=== PATIENT | male | born 1960 | race Caucasian/White ===

== ENCOUNTER 2022-05-07 18:46 | Inpatient (IN) ==
[2022-05-07 19:55] LABS: Hemoglobin 16.5 g/dl (14.0-18.0); Mean Corpuscular Hemoglobin 31.3 pg (25.0-34.0); Mean Corpuscular Hgb Conc 35.1 g/dL (32.0-36.0); Platelet Count 266 K/uL (130-400); RDW Coefficient of Variation 12.3 % (11.5-14.5); RDW Standard Deviation 40.4 fL (36.4-46.3); Red Blood Count 5.28 M/uL (4.63-6.08); White Blood Count 16.57 K/ul (4.8-10.8)
[2022-05-07] MEDS ORDERED: LABETALOL HCL IV 5 MG/ML 20ML IV STA (20:07)
--- NOTE | 2022-05-07 20:10 | Emergency Department Note ---
Impression & Plan Elevated troponin ADMIT ED Provider Note HPI: The patient is a very pleasant 62-year-old gentleman who presents emergency department with a chief complaint of hypertension. Patient states that he was playing the trLittle Pimet earlier this week and he states he was "really going out of it". He states he was playing for about 2-1/2 hours, patient states shortly thereafter he developed a sensation of tinnitus bilaterally, denies any headache, denies any nausea or vomiting. Patient states that he was seen today an urgent care in [place], [place], as he was concerned he might be developing an ear infection. During that visit patient was noted to have hypertension and was a dvised to come to the emergency department to be evaluated for a hypertensive emergency. On arrival here to the ED his blood pressure is elevated at 171/98, he denies any headache, denies any chest pain, denies any abdominal pain, states he does have a sensation of tinnitus bilaterally but denies any headache. Patient is otherwise hemodynamically stable and saturating well on room air on arrival, he is conversational, no focal deficits, no respiratory distress ROS: -General: Concern for hypertension -HEENT: Tinnitus, bilateral *10 point review systems was conducted and is otherwise negative unless stated above *Outpatient medications and allergy history reviewed PE: General: Alert HEENT: Normocephalic, trachea midline, tympanic membranes are clear bilaterally Eyes: Extraocular eye movement is intact, no scleral erythema Pulmonary: Clear to auscultation bilaterally, no wheezing Cardio: Regular rate and rhythm GI: Abdomen is soft, nontender : No suprapubic tenderness MSK: No evidence of trauma or malformation of the extremities, no edema Skin: No evidence of rash Neuro: Alert, no focal deficits Psychiatric: Cooperative pvc monitor: - An order was placed for continuous cardiac monitoring - Patient was noted to be in sinus rhythm with a rate of 100 EKG: Rate: 107 Rhythm: Sinus rhythm Intervals: Within normal limits ST changes: No ST elevation Time: 192 EKG #2 Rate: 81 Rhythm: Normal sinus rhythm Intervals: Within normal limits ST changes: No ST elevation Time: 2042 Interventions provided in ED: -IV labetalol, IV hydralazine, aspirin CTA CHEST: No evidence of pulmonary emboli. Findings concerning for bronchitis, which may be infectious or inflammatory etiologies. No consolidation. Ectasia of the ascending region measuring 37 mm in diameter. Moderate calcified atherosclerotic disease of the coronary arteries. Small hiatal hernia. No comparisons. Radiologist: Tianna Rucker MD Medical Decision Making: The patient is a 62-year-old male with history of coronary artery disease, presents to the emergency department with a chief complaint of high blood pressure at the local urgent care, also with some recent tinnitis after playing the trumpet. He denies any headaches. On arrival here to the ED the patient is noted to be hypertensive at 171/98, patient was given IV labetalol, placed on property assessment monitor, blood work was obtained. EKG was also obtained, noted to show normal sinus rhythm without any evidence of ST elevation. Patient's troponin did result elevated at 105, his blood pressure remained elevated as well, I discussed with the patient obtaining CT angiography of the chest to rule out PE or dissection, patient was in agreement, CT angiography was obtained that shows no evidence of pulmonary emboli, no evidence of any obvious dissection, there is evidence of some ectasia of the ascending region of the aorta measuring 37 mm in diameter. There is also note of moderate calcified atherosclerotic disease of the coronary arteries. Patient later tells me that he did have a stent placed years ago at [facility], he states he is concentrating on diet and exercise after doing his own research as opposed to medical therapy for his coronary artery disease. Patient states he has not had any chest pain recently, if he goes through "extreme exertion" he states he will get some chest discomfort but at rest he has no symptoms. He has not had any active chest pain while here in the ED. Lab work does show evidence of leukocytosis, patient denies any recent infectious signs or symptoms. This could possibly be reactive in nature. CT imaging of the chest mentions possible bronchitis, no evidence of a focal consolidation to suggest pneumonia. On my reassessment the patient appears comfortable, he was given hydralazine and labetalol and his blood pressure did downtrend to the 160 systolic. I discussed with him my concerns in regards to his elevated troponin, hypertensive emergency, and history of coronary artery disease. Patient adamantly declines any type of diagnostic catheterization, states that he is in agreement for admission for blood pressure control and to trend his troponin levels but would only want a catheterization if he was having an acute heart attack. Patient states this is because he is on a strict diet and exercise regimen after doing his own research to reverse his coronary artery disease with diet and exercise alone. Regardless, at this time the patient is in agreement for admission for further care in regards to his hypertensive emergency with end-organ damage/elevated troponin. Blood pressure is improved, patient was given aspirin, case was discussed with the on-call hospitalist for [facility], Dr. Valenzuela, patient was admitted in stable condition for further care. * CRITICAL CARE TIME: (45) minutes -Time spent at the bedside in management of hypertensive emergency with elevated troponin, requiring IV antihypertensive medications for blood pressure improvement, discussion with other physicians, time spent at the bedside in discussion with the patient in regards to admission, and arrangement of admission Diagnosis: 1. Hypertensive emergency 2. Elevated troponin 3. Nonspecific leukocytosis Disposition: Admission Shine Zambrano, Emergency Medicine Past Med/Surg History Social History Smoking Status: Never smoker Preferred Language: Peruvian Feels Safe at Home: Yes Allergies Allergies Allergy/AdvReac Type Severity Reaction Status Date / Time No Known Allergies Allergy Unverified 05/07/22 21:10 Home Meds Home Medications Medication Instructions Recorded Confirmed aspirin 81 mg tablet,delayed 81 mg PO DAILY 05/07/22 05/07/22 release Results & Data (ED) Vital Signs Vital Signs - 24 hr 05/07/22 19:05 05/07/22 20:47 05/07/22 19:08 Temperature 37.0 C Temperature Source Temporal Artery Scan Pulse Rate 100 H 81 Pulse Rate [Apical] 81 Pulse Rate from SpO2 Sensor Respiratory Rate 18 19 24 Respiratory Effort / Characteristics Non-Labored Spontaneous Respiratory Depth Normal Normal Blood Pressure 171/98 H Blood Pressure [Right Arm] 185/99 H Blood Pressure Mean 122 Blood Pressure Mean [Right Arm] 127 Pulse Oximetry 98 99 99 Oxygen Delivery Method Room Air Room Air Room Air Sepsis Recent Fever Within 48 Hours No Sepsis New/Unexplained Change in Mental Status N/A Sepsis Action Taken by Nursing No Action Required 05/07/22 20:10 05/07/22 20:29 05/07/22 20:30 Temperature Temperature Source Pulse Rate 83 95 H 105 H Pulse Rate [Apical] Pulse Rate from SpO2 Sensor Respiratory Rate 22 24 23 Respiratory Effort / Characteristics Respiratory Depth Blood Pressure 190/101 H Blood Pressure [Right Arm] Blood Pressure Mean 130 Blood Pressure Mean [Right Arm] Pulse Oximetry Oxygen Delivery Method Sepsis Recent Fever Within 48 Hours Sepsis New/Unexplained Change in Mental Status Sepsis Action Taken by Nursing 05/07/22 21:00 05/07/22 21:15 05/07/22 21:30 Temperature Temperature Source Pulse Rate 77 88 83 Pulse Rate [Apical] Pulse Rate from SpO2 Sensor 85 Respiratory Rate 22 13 21 Respiratory Effort / Characteristics Respiratory Depth Blood Pressure 184/112 H 185/99 H 173/115 H Blood Pressure [Right Arm] Blood Pressure Mean 136 127 134 Blood Pressure Mean [Right Arm] Pulse Oximetry 100 Oxygen Delivery Method Sepsis Recent Fever Within 48 Hours Sepsis New/Unexplained Change in Mental Status Sepsis Action Taken by Nursing Laboratory Data Result diagrams: 05/07/22 19:28 05/07/22 19:28 Lab Results 05/07/22 05/07/22 05/07/22 Range/Units 19:28 19:28 19:28 WBC 16.57 H (4.8-10.8) K/ul RBC 5.28 (4.63-6.08) M/uL Hgb 16.5 (14.0-18.0) g/dl Hct 47.0 (40.1-51.0) % MCV 89.0 (80.0-100.0) fL MCH 31.3 (25.0-34.0) pg MCHC 35.1 (32.0-36.0) g/dL RDW Std Deviation 40.4 (36.4-46.3) fL RDW Coeff of Trever 12.3 (11.5-14.5) % Plt Count 266 (130-400) K/uL MPV 10.0 (9.4-12.4) fL Immature Gran % (Auto) 0.3 % Neut % (Auto) 90.3 % Lymph % (Auto) 4.9 % Valley % (Auto) 4.2 % Eos % (Auto) 0.0 % Baso % (Auto) 0.3 % Neut # (Auto) 14.96 H (1.4-6.5) K/uL Lymph # (Auto) 0.81 L (1.2-3.4) K/uL Valley # (Auto) 0.70 (0.24-0.82) K/uL Eos # (Auto) 0.00 (0-0.50) K/uL Baso # (Auto) 0.05 (0-0.2) K/uL Immature Gran # (Auto) 0.05 H (0.00-0.02) K/uL PT 10.9 (9.0-12.0) Seconds INR 1.0 (0.9-1.1) APTT 25.8 (21.0-31.0) Seconds PTT Ratio 0.9 Sodium 135 L (136-145) mmol/L Potassium 3.5 (3.5-5.1) mmol/L Chloride 101 (98-107) mmol/L Carbon Dioxide 25 (21-32) mmol/L Anion Gap 9 (3-11) BUN 14 (6-23) mg/dl Creatinine 0.74 (0.6-1.4) mg/dl Est Cr Clr Drug Dosing 100.1 ml/min Est GFR ( Amer) 114.6 ml/min Est GFR (Non-Af Amer) 98.9 ml/min BUN/Creatinine Ratio 18.9 (10-20) Glucose 155 H (70-99(Fasting)) mg/dl Calcium 10.1 (8.5-10.1) mg/dl Total Bilirubin 1.2 H (0.2-1.0) mg/dl AST 19 (13-39) U/L ALT 22 (7-52) U/L Alkaline Phosphatase 94 (34-104) U/L Troponin I High Sens 105.9 H* (0-20) pg/ml Total Protein 7.7 (6.0-8.3) gm/dl Albumin 4.9 (3.4-5.0) gm/dl Globulin 2.8 (2.5-4.0) gm/dl Albumin/Globulin Ratio 1.8 (0.9-2) Administered Medications Discontinued Medications Hydralazine HCl (Hydralazine Hcl 20 Mg/Ml Vial) 10 mg IV NOW STA Stop: 05/07/22 21:57 Last Admin: 05/07/22 22:02 Dose: 10 mg Documented By: JASON Ioversol (Optiray 320 500ml) 114 ml IV ONCE ONE Stop: 05/07/22 21:55 Last Admin: 05/07/22 21:55 Dose: 114 ml Documented By: KENYON Labetalol HCl (Labetalol Hcl Iv 5 Mg/Ml 20ml) 15 mg IV NOW STA Stop: 05/07/22 20:08 Last Admin: 05/07/22 20:29 Dose: 15 mg Documented By: JASON Co-signed By: SONNY Imaging Data Radiologist's Impression: Chest X-Ray 05/07/22 20:07 XR chest 1V portable CLINICAL HISTORY: Hypertension. COMPARISON STUDY: No previous studies for comparison. FINDINGS: Lung volumes are normal. Lungs are clear. There is no pneumothorax or pleural effusion. Cardiac size is normal. Mediastinal contours are normal. There is no evidence for pulmonary edema. IMPRESSION: No acute cardiopulmonary findings. ACT 112: Negative or not required by law. Electronically signed by: Maged Rich M.D. 05/07/2022 8:24 PM Discharge Plan Visit Data Chief Complaint: Hypertension Stated Complaint: HYPERTENSION, ED Provider: Shine Zambrano Discharge Problem: Elevated troponin Patient Disposition: Admitted As Inpatient Forms Stand Alone Forms: [facility] Prescriptions Prescriptions: No Action aspirin [Aspirin Low-Strength] 81 mg Tablet,Delayed Release (Dr/Ec) 81 mg PO DAILY Referrals Referrals: PCP,NO [Physician] -
[2022-05-07 20:11] LABS: Partial Thromboplastin Ratio 0.9; Partial Thromboplastin Time 25.8 Seconds (21.0-31.0); Prothrombin Time 10.9 Seconds (9.0-12.0)
[2022-05-07 20:16] LABS: Basophils # (auto) 0.05 K/uL (0-0.2); Basophils % (auto) 0.3 %; Immature Granulocytes # (auto) 0.05 K/uL (0.00-0.02); Immature Granulocytes % (auto) 0.3 %; Lymphocytes # (auto) 0.81 K/uL (1.2-3.4); Lymphocytes % (auto) 4.9 %; Monocytes % (auto) 4.2 %; Neutrophils # (auto) 14.96 K/uL (1.4-6.5); Neutrophils % (auto) 90.3 %
[2022-05-07 20:17] LABS: Albumin Globulin Ratio 1.8 (0.9-2); Albumin Level 4.9 gm/dl (3.4-5.0); BUN Creatinine Ratio 18.9 (10-20); Bilirubin,Total 1.2 mg/dl (0.2-1.0); Calcium 10.1 mg/dl (8.5-10.1); Creatinine Clr Calc Pharmacy 100.1 ml/min; Est GFR (African American) 114.6 ml/min; Est GFR (Non-African American) 98.9 ml/min; Globulin 2.8 gm/dl (2.5-4.0); Potassium 3.5 mmol/L (3.5-5.1); Total Protein 7.7 gm/dl (6.0-8.3)
[2022-05-07 20:25] LABS: Troponin I High Sensitivity 105.9 pg/ml (0-20)
--- NOTE | 2022-05-07 20:25 | XRay Report ---
XR chest 1V portable CLINICAL HISTORY: Hypertension. COMPARISON STUDY: No previous studies for comparison. FINDINGS: Lung volumes are normal. Lungs are clear. There is no pneumothorax or pleural effusion. Car diac size is normal. Mediastinal contours are normal. There is no evidence for pulmonary edema. IMPRESSION: No acute cardiopulmonary findings. ACT 112: Negative or not required by law. Electronically signed by: Maged Rich M.D. 05/07/2022 8:24 PM
[2022-05-07] MEDS ORDERED: OPTIRAY 320 500ml IV ONE (21:54)
[2022-05-07] MEDS ORDERED: hydrALAZINE HCL 20 MG/ML VIAL IV STA (21:56)
[2022-05-07] MEDS ORDERED: ASPIRIN CHEW 324 MG PO STA ×2 (22:50→23:04)
[2022-05-08] MEDS ORDERED: ENALAPRILAT 1.25 MG in DEXTROSE 5% 25 ML IV PRN (02:07)
[2022-05-08] MEDS ORDERED: POLYETHYLENE (MIRALAX) 17 GM PACK PO PRN (02:07)
[2022-05-08] MEDS ORDERED: NITROGLYCERIN SL 0.4 MG/TAB TAB SL PRN (02:07)
[2022-05-08] MEDS ORDERED: ACETAMINOPHEN 325 MG TAB PO PRN (02:07)
--- NOTE | 2022-05-08 02:29 | History and Physical Report ---
DATE OF ADMISSION: 05/07/2022. CHIEF COMPLAINT: Hypertensive urgency and emergency. HISTORY OF PRESENT ILLNESS: This is a 62-year-old male with past medical history significant for coronary artery disease, status post cardiac stent placement in 2008, seems to be in [place]. Currently taking only aspirin 81 mg p.o. daily. The patient states he is not taken any cardiac medications for a long time and in July of this year, he had COVID, and one month later in August after eating a big lunch, he noticed some upper abdominal discomfort and also some of this pain going into the shoulder. As it was not getting better, he saw GI and they advised to get cardiac evaluation. He went to [place] to his estate planning attorney and got his stress test, which he failed. At that time, the estate planning attorney recommended for cardiac catheterization, but the patient at that time was reading a book called "The End of Heart Disease" and as per the patient in the book , for stable angina, you do not need any medical treatment, you can cure it with diet and he refused to do cardiac catheterization and he is using mostly vegan diet, except once in a while salmon and once in a while eggs and he lost about 35 pounds. Initially before starting the vegy diet minimal exertion would cause him some chest discomfort, but now he says he is walking long distances without any discomfort. Once in a while, walking uphill brings mild chest discomfort, but not much, even he was riding a bike, and he was doing okay, but lately he also started learning trumpet and as he was blowing the trumpet, he felt his ears were ringing and he went to urgent care where they found the blood pressure was high and sent him here. The patient says his blood pressure was running in 140s usually, and he agrees to be on blood pressure medication. When he came in, blood pressure was in like 170s to 190s. He was given a dose of labetalol and also a dose of hydralazine, and currently it is 150/91. Resting comfortably. The patient denies any chest pain, no shortness of breath, no headache, no blurred visions, no earache. Has some occasional runny nose, no sore throat, no cough, no fevers, no nausea, no abdominal pain. Normal bowel and bladder movements. No swelling in the legs. The patient says he wants to complete vegan diet now and refuses for an elective cardiac catheterization. If he gets acute heart attack, he is okay for cardiac catheterization and he is okay to take blood pressure medication for now and he thinks with continuing with vegan diet, the blood pressure will come down later and he says he is going to follow up with his family doctor and his estate planning attorney regarding that. ALLERGIES: No known drug allergies. PAST MEDICAL HISTORY: As mentioned above. PAST SURGICAL HISTORY: Dental surgery, cardiac catheterization, and stent placement. MEDICATIONS: The patient takes only aspirin 81 mg p.o. daily. FAMILY HISTORY: Significant for father had colon cancer; paternal grandfather had alcoholism; maternal grandfather had coronary artery disease; maternal grandmother had depression; brother has drug abuse; mother has hyperlipidemia; father also had melanoma; niece has thyroid cancer; brother has schizophrenia. SOCIAL HISTORY: Single, no smoking. Currently no alcohol use. No drug use currently. Seems to be having a history of marijuana and crack cocaine in the past. REVIEW OF SYSTEMS: As per HPI. Rest of the review of systems is negative. PHYSICAL EXAMINATION: GENERAL: The patient is of moderate build, not in acute distress. VITAL SIGNS: Temperature 37, pulse 84, respiratory rate 22, when he came in blood pressure was 190/101, currently 150/91, and oxygen 100% on room air. HEENT: Pupils equal, round and reactive to light. Oral mucosa moist. NECK: No JVD, no neck masses. CARDIOVASCULAR: S1 and S2 heard. Regular rate and rhythm. No murmur, no gallop. RESPIRATORY SYSTEM: Normal AP diameter. No accessory muscle use. No wheezing, no crackles. ABDOMEN: Soft, bowel sounds present, nontender, no distention. CENTRAL NERVOUS SYSTEM: Cranial nerves II-XII grossly intact, nonfocal. EXTREMITIES: No edema, no erythema. LABORATORY DATA: WBC 16.5, hemoglobin 16.5, hematocrit 47, platelets 266. PT 10.9, INR 1, APTT 25.8. Sodium 135, potassium 3.5, chloride 101, bicarbonate 25, BUN 14, creatinine 0.7, serum glucose 155, calcium 10.1, total bilirubin 1.2, AST 19, ALT 22, alkaline phosphatase 94. Troponin I high sensitivity 105.9. SARS-CoV-2 pending. IMAGING DATA: CT of the chest, possible bronchitis. No PE. Chest x-ray, no acute findings. EKG: Sinus tachycardia at a rate of 107, marked ST abnormalities. Some ST depressions in lateral leads, but no old EKG to compare. ASSESSMENT AND PLAN: This is a 62-year-old male who presents with hypertensive urgency and emergency. 1. Hypertensive urgency and emergency: The patient's blood pressure runs in the 140s, but not taking any medications. But he is trying a vegan diet, he says he has lost 35 pounds since August of this year, but okay to be on blood pressure medications. Received labetalol and hydralazine in the ER. Will continue with coreg 6.25mg b.i.d. as the patient has history of coronary artery disease. and IV Vasotec p.r.n. for now. Closely monitor in the tele floor. Will get an echocardiogram. Consult cardiology in the a.m. 2. History of coronary artery disease: Status post right coronary stent as per the patient in 2008. Currently, only taking aspirin, not taking any cardiac medications as he is trying to follow the vegan diet. Will consult cardiology for further recommendation. 3. Mild elevation of troponin, mostly demand ischemia. We will follow serial enzymes. Follow the repeat echo, repeat EKG. Consult cardiology in the a.m. Will also follow lipid profile. 4. Deep venous thrombosis prophylaxis: Sequential compression devices for now. DISPOSITION: Closely monitor in tele floor. Level 1 full code. Expect to discharge home and follow with family doctor. Job ID: [id number] [email or web address]
[2022-05-08] MEDS: carvediloL 6.25 MG TAB PO SCH ×3 (03:28→21:13)
[2022-05-08 06:00] LABS: Basophils # (auto) 0.02 K/uL (0-0.2); Basophils % (auto) 0.2 %; Eosinophils # (auto) 0.02 K/uL (0-0.50); Eosinophils % (auto) 0.2 %; Hematocrit (blood only) 43.5 % (40.1-51.0); Hemoglobin 15.1 g/dl (14.0-18.0); Immature Granulocytes # (auto) 0.03 K/uL (0.00-0.02); Immature Granulocytes % (auto) 0.3 %; Lymphocytes # (auto) 1.21 K/uL (1.2-3.4); Lymphocytes % (auto) 10.6 %; Mean Corpuscular Hemoglobin 30.8 pg (25.0-34.0); Mean Corpuscular Hgb Conc 34.7 g/dL (32.0-36.0); Mean Corpuscular Volume 88.6 fL (80.0-100.0); Mean Platelet Volume 9.9 fL (9.4-12.4); Monocytes # (auto) 0.79 K/uL (0.24-0.82); Monocytes % (auto) 6.9 %; Neutrophils % (auto) 81.8 %; Platelet Count 241 K/uL (130-400); RDW Coefficient of Variation 12.4 % (11.5-14.5); RDW Standard Deviation 40.6 fL (36.4-46.3); Red Blood Count 4.91 M/uL (4.63-6.08); White Blood Count 11.37 K/ul (4.8-10.8)
[2022-05-08 06:15] LABS: BUN Creatinine Ratio 15.6 (10-20); Calcium 9.8 mg/dl (8.5-10.1); Chol HDL Ratio 2.8 (0-5); Creatinine Clr Calc Pharmacy 115.8 ml/min; Est GFR (African American) 121.6 ml/min; Est GFR (Non-African American) 104.9 ml/min; Magnesium 2.1 mg/dl (1.7-2.4); Potassium 3.7 mmol/L (3.5-5.1)
[2022-05-08] MEDS ORDERED: Heparin IV Adult Wt-Based Standard *NO* Bolus Protocol IV SCH (06:57)
--- NOTE | 2022-05-08 07:07 | CT Scan Report ---
CT angio chest PE protocol CT DOSE: 413.69 mGy.cm HISTORY: 62 years-old Male with PE. Acute shortness of breath with hypertension TECHNIQUE: Multiple CTA images of the chest were obtained after the intravenous administration of 114 ml Optiray. Coronal and sagittal MIPS were obtained from the axial data set and were submitted for review. All measurements were obtained according to NASCET criteria. A dose lowering technique was u tilized adhering to the principles of ALARA. COMPARISON: Chest radiograph of same day FINDINGS: CTA: The heart is upper limits of normal in size. Extensive coronary artery calcifications. There is no pe ricardial effusion. Atherosclerosis of the thoracic aorta without aneurysm or dissection. There is de scending thoracic aortic tortuosity. The opacified pulmonary artery is unremarkable. No filling defec ts are identified to suggest thromboembolic disease. CT CHEST: Subcentimeter right thyroid lobe calcifications. No pathologically enlarged lymph nodes. No pneumotho rax, pleural effusion, airspace consolidation or overt pulmonary edema. No suspicious pulmonary nodul es or masses are identified. Tiny calcified granuloma of the left lung apex. Central airways are shepherd nt. No acute process of the imaged upper abdomen. Subcentimeter hypodensity of the liver on image 12 is t oo small to characterize, likely a cyst. Bones appear intact with degenerative changes of the shoulde rs and spine. No acute fracture identified. IMPRESSION: Unremarkable CTA of the chest. No pulmonary emboli are identified. ACT 112: Negative or not required by law. The above report was generated using voice recognition software. It may contain grammatical, syntax o r spelling errors. Electronically signed by: David Caro M.D. 05/08/2022 7:06 AM
[2022-05-08] MEDS ORDERED: HEPARIN SODIUM/DEXTROSE 25,000 UNITS/500 ML BAG IV SCH (07:15)
[2022-05-08] MEDS: ASPIRIN 81 MG ECTAB PO SCH (08:02)
--- NOTE | 2022-05-08 08:21 | Cardiology Consultation ---
Date of Consultation May 08, 2022 Assessment & Plan (1) NSTEMI (non-ST elevated myocardial infarction): (2) Elevated troponin: (3) CAD (coronary artery disease): (4) Hypertensive urgency: (5) Dyslipidemia: (6) Statin declined: Plan Patient admitted with hypertensive urgency. Minimally elevated troponin on arrival, trending upward to 4800 this morning, consistent with NSTEMI. Abnormal EKG concerning for underlying ischemia, ST depression in lateral leads on admission. Improved on repeat but with persistent T wave inversion in inferior leads. Started on IV heparin. Patient remains asymptomatic other than "ear ringing". BP trending down with initiation of carvedilol 6.25 mg BID. Lisinopril started this morning. Continue ASA. Patient declines statin Echo results pending. Repeat troponin this morning pending. We discussed cardiac catheterization in detail. He has underlying known coronary artery disease with prior NSTEMI to the inferior wall in 2008 receiving stent to the RCA. He had abnormal nuclear stress test in September 2021 and declined cardiac cath at that time. Given elevated troponin, abnormal EKG, and history of CAD, recommend proceeding with diagnostic cardiac cath. Patient is hesitant to proceed. He wishes to await echo results and repeat troponin. Keep NPO. Monitor BP with adjustments in meds. Case discussed with Dr. Muñoz Supervising Physician Co-Signing Physician Notes Patient was seen and personally examined. Currently asymptomatic Patient presented yesterday predominantly secondary to symptoms of elevated blood pressure with head pressure and tinnitus. No chest pain shortness of breath cardiac complaints Clinical history notable for known coronary disease with past abnormal stress test September 2021. Patient at that time with class 3+ angina pectoris Patient has embraced substantial lifestyle changes dietary and weight loss and now is class I 2 function capacity from cardiac standpoint. No prior sustained chest pain. Keeps exercise activities below anginal threshold. On presentation patient significantly hypertensive Troponins with rise to greater than 4000 Echocardiogram with only subtle hypokinesis posterior wall the base with othe rwise preserved LV systolic function Patient does not wish to proceed with invasive procedures. Long discussion made regarding medical and interventional therapies Impression: Non-ST segment elevation myocardial infarction, type II secondary to hypertensive urgency. Echocardiogram and EKGs at this point do not suggest multivessel coronary disease. No further symptoms with presenting complaint secondary to hypertension. Patient wishes to avoid invasive procedures Discussed management in detail with the patient he has made aggressive changes in heart healthy lifestyle weight loss with improved lipids and improved functional capacity anginal pattern improving from class 3+ to class 1-2 Plan: Continue heparin till this afternoon and then discontinue Discussed benefits of guideline directed optimal medical regimen and he is agreeable. Continue beta-dianne with carvedilol with possible upward titration, GIULIANA inhibitor with lisinopril, antiplatelet therapy with aspirin. Patient begin following heart rate and blood pressure at home Patient agreeable to retrial statin. We will choose rosuvastatin at 10 mg/day on discharge If clinical symptoms worsen in hospital post discharge we will reconsider cardiac catheterization Will arrange cardiology follow-up with [facility] Davies History of Present Illness Reason for Consultation: Hypertension; Elevated troponin; History of CAD s/p remote Requesting Physician: Dr. Valenzuela Attending Physician: Dr. Muñoz History of Present Illness Patient is a 62 year old male who follows with outside Cardiology group, [facility] in [place], Dr. Dewey. Records have been requested. Limited info in inpatient/outpatient records or through Care Everywhere. Patient reports history of inferior wall MA in 2008 s/p RCA stent. Treated with ASA and plavix for 1 year. He reports he as on simvastatin at that time, but stopped medication due to myalgias, and refused to take additional statins. Over the years, he was lost to f/u for cardio and stopped all his BP medications. In September 2021 he re-established with Dr. Dewey. He underwent echo and nuclear stress testing at that time due to symptoms of intermittent chest pain, dyspnea. Apparently his stress test was abnormal and it was recommended he undergo cardiac catheterization. However, patient declined. He preferred life style management and changed to Vegan diet and lost about 40 lbs. He reports great improvement in his symptoms with lifestyle changes. Improved functional capacity. Improved dyspnea. He does continue to report chest tightness or "indigestion" with maximal exertion, such as pushing himself on a treadmill or the elliptical. He has only been taking ASA 81 mg daily. He does not monitor his BP at home. Earlier this week he began to notice ringing in his ears. He thought he had tinnitus or an ear infection, so presented to urgent care for evaluation. Upon arrival, BP was significantly elevated. He was directed to the ER for further evaluation and treatment. Upon arrival, EKG was abnormal demonstrating lateral ST depression. Initial troponin slightly elevated at 100, but increasing to 4800 overnight. He was started on IV heparin. Repeat EKG demonstrated improved ST/T wave depression in lateral leads but T wave inversion in inferior leads. Due to significantly e levated BP, he was started on carvedilol and IV enalapril, transitioning to oral lisinopril this morning. BP remained elevated this morning prior to medication but trending downward. He reports ringing in the ears is subsiding as his BP improves. He denies chest pain/chest tightness or SOB currently. He is resting comfortably in bed. He is unsure if he would like to proceed with cardiac cath. Awaiting echo results and he is requesting repeat troponin results this morning. 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 Beliefs That Will Affect Care: None Current Living Situation: Alone Other Information That Helps Us Care for You: No Feels Safe at Home: Yes Safety Concerns: Feels Safe At This Time Assistive Devices: None Review of Systems Review of Systems: All systems reviewed & are unremarkable except as noted in HPI & below Physical Exam Constitutional: WD/WN, vitals as above well developed; no acute distress Neck: trachea midline, no thyromegaly normal visual inspection Respiratory: normal respiratory effort, lungs clear to auscultation Cardiovascular: Rate/Rhythm: regular rate and regular rhythm Heart Sounds: normal S1 and normal S2; no murmur Vessels: no JVD Extremities: no edema Gastrointestinal (Abdomen): normal bowel sounds, soft, nontender, no hepatosplenomegaly Musculoskeletal: no cyanosis or clubbing, extremities motor strength 5/5 Neurologic: PERRL, EOMI, accommodation nl, no face palsy, no dysarthria Psychiatric: A+Ox3, euthymic affect Results & Data ([facility]) Vital Signs (Past 12 Hours) Vital Signs Temp Pulse Pulse Resp BP BP BP 05/08/22 08:06 36.9 C 80 16 05/08/22 02:12 37.5 C 68 16 160/85 H 05/08/22 03:19 36.3 C L 66 16 159/86 H 05/08/22 02:12 37.5 C 68 16 160/85 H 05/08/22 01:58 68 05/08/22 01:45 05/08/22 00:45 80 13 161/93 H 05/08/22 00:30 78 10 L 148/94 H 05/08/22 00:15 78 11 L 155/84 H 05/07/22 23:45 79 19 161/88 H 05/07/22 23:43 150/91 H 05/07/22 23:00 176/97 H 05/07/22 22:54 182/105 H 05/07/22 22:31 167/81 H 05/07/22 22:20 178/99 H 05/07/22 22:12 84 175/106 H 05/07/22 22:03 199/106 H 05/07/22 21:30 83 21 173/115 H 05/07/22 21:15 88 13 185/99 H 05/07/22 21:00 77 22 184/112 H 05/07/22 20:30 105 H 23 05/07/22 20:29 95 H 24 190/101 H 05/07/22 20:47 81 19 185/99 H Pulse Ox O2 Del Method 05/08/22 08:06 99 Room Air 05/08/22 02:12 99 Room Air 05/08/22 03:19 98 Room Air 05/08/22 02:12 99 Room Air 05/08/22 01:58 05/08/22 01:45 Room Air 05/08/22 00:45 97 05/08/22 00:30 98 05/08/22 00:15 99 05/07/22 23:45 05/07/22 23:43 05/07/22 23:00 05/07/22 22:54 05/07/22 22:31 100 05/07/22 22:20 100 05/07/22 22:12 100 05/07/22 22:03 100 05/07/22 21:30 100 05/07/22 21:15 05/07/22 21:00 05/07/22 20:30 05/07/22 20:29 05/07/22 20:47 99 Room Air Laboratory Results Cardiac Enzymes 05/07/22 05/08/22 Range/Units 19:28 05:21 AST 19 (13-39) U/L Troponin I High Sens 105.9 H* 4804.0 H* D (0-20) pg/ml Coagulation 05/07/22 Range/Units 19:28 PT 10.9 (9.0-12.0) Seconds APTT 25.8 (21.0-31.0) Seconds Lipids 05/08/22 Range/Units 05:21 Triglycerides 44 (0-150) mg/dl Cholesterol 168 (0-200) mg/dl HDL Cholesterol 60 mg/dl Cholesterol/HDL Ratio 2.8 (0-5) CBC 05/07/22 05/08/22 Range/Units 19:28 05:21 WBC 16.57 H 11.37 H (4.8-10.8) K/ul RBC 5.28 4.91 (4.63-6.08) M/uL Hgb 16.5 15.1 (14.0-18.0) g/dl Hct 47.0 43.5 (40.1-51.0) % Plt Count 266 241 (130-400) K/uL Neut # (Auto) 14.96 H 9.30 H (1.4-6.5) K/uL Lymph # (Auto) 0.81 L 1.21 (1.2-3.4) K/uL [place] # (Auto) 0.70 0.79 (0.24-0.82) K/uL Eos # (Auto) 0.00 0.02 (0-0.50) K/uL Baso # (Auto) 0.05 0.02 (0-0.2) K/uL Comprehensive Metabolic Panel 05/07/22 05/08/22 Range/Units 19:28 05:21 Sodium 135 L 140 (136-145) mmol/L Potassium 3.5 3.7 (3.5-5.1) mmol/L Chloride 101 107 (98-107) mmol/L Carbon Dioxide 25 27 (21-32) mmol/L BUN 14 10 (6-23) mg/dl Creatinine 0.74 0.64 (0.6-1.4) mg/dl Glucose 155 H 111 H (70-99(Fasting)) mg/dl Calcium 10.1 9.8 (8.5-10.1) mg/dl AST 19 (13-39) U/L ALT 22 (7-52) U/L Alkaline Phosphatase 94 (34-104) U/L Total Protein 7.7 (6.0-8.3) gm/dl Albumin 4.9 (3.4-5.0) gm/dl Intake and Output 05/07/22 05/08/22 05/08/22 22:59 06:59 14:59 Other: Other Intake Source sips and chips Weight 79.9 kg 76.3 kg Weight Measurement Method Standing Scale Diagnostic Findings Telemetry reviewed: NSR, no arrhythmias. EKG on arrival to ER - Sinus tachycardia Possible Left atrial enlargement Cannot rule out Anterior infarct , age undetermined Marked ST abnormality, possible lateral subendocardial injury No prior for comparison Repeat EKG last evening: Normal sinus rhythm Incomplete right bundle branch block ST no longer depressed in Lateral leads T wave inversion now evident in Inferior leads Repeat EKG this morning: Normal sinus rhythm T wave inversion in inferior leads Echo results pending Laboratory Results WBC 11.37 K/ul (4.8-10.8) H 05/08/22 05:21 RBC 4.91 M/uL (4.63-6.08) 05/08/22 05:21 Hgb 15.1 g/dl (14.0-18.0) 05/08/22 05:21 Hct 43.5 % (40.1-51.0) 05/08/22 05:21 MCV 88.6 fL (80.0-100.0) 05/08/22 05:21 MCH 30.8 pg (25.0-34.0) 05/08/22 05:21 MCHC 34.7 g/dL (32.0-36.0) 05/08/22 05:21 RDW Std Deviation 40.6 fL (36.4-46.3) 05/08/22 05:21 RDW Coeff of [place] 12.4 % (11.5-14.5) 05/08/22 05:21 Plt Count 241 K/uL (130-400) 05/08/22 05:21 MPV 9.9 fL (9.4-12.4) 05/08/22 05:21 Immature Gran % (Auto) 0.3 % 05/08/22 05:21 Neut % (Auto) 81.8 % 05/08/22 05:21 Lymph % (Auto) 10.6 % 05/08/22 05:21 [place] % (Auto) 6.9 % 05/08/22 05:21 Eos % (Auto) 0.2 % 05/08/22 05:21 Baso % (Auto) 0.2 % 05/08/22 05:21 Neut # (Auto) 9.30 K/uL (1.4-6.5) H 05/08/22 05:21 Lymph # (Auto) 1.21 K/uL (1.2-3.4) 05/08/22 05:21 [place] # (Auto) 0.79 K/uL (0.24-0.82) 05/08/22 05:21 Eos # (Auto) 0.02 K/uL (0-0.50) 05/08/22 05:21 Baso # (Auto) 0.02 K/uL (0-0.2) 05/08/22 05:21 Immature Gran # (Auto) 0.03 K/uL (0.00-0.02) H 05/08/22 05:21 PT 10.9 Seconds (9.0-12.0) 05/07/22 19:28 INR 1.0 (0.9-1.1) 05/07/22 19:28 APTT 25.8 Seconds (21.0-31.0) 05/07/22 19:28 PTT Ratio 0.9 05/07/22 19:28 Sodium 140 mmol/L (136-145) 05/08/22 05:21 Potassium 3.7 mmol/L (3.5-5.1) 05/08/22 05:21 Chloride 107 mmol/L (98-107) 05/08/22 05:21 Carbon Dioxide 27 mmol/L (21-32) 05/08/22 05:21 Anion Gap 6 (3-11) 05/08/22 05:21 BUN 10 mg/dl (6-23) 05/08/22 05:21 Creatinine 0.64 mg/dl (0.6-1.4) 05/08/22 05:21 Est Cr Clr Drug Dosing 115.8 ml/min 05/08/22 05:21 Est GFR ( Amer) 121.6 ml/min 05/08/22 05:21 Est GFR (Non-Af Amer) 104.9 ml/min 05/08/22 05:21 BUN/Creatinine Ratio 15.6 (10-20) 05/08/22 05:21 Glucose 111 mg/dl (70-99(Fasting)) H 05/08/22 05:21 Calcium 9.8 mg/dl (8.5-10.1) 05/08/22 05:21 Magnesium 2.1 mg/dl (1.7-2.4) 05/08/22 05:21 Total Bilirubin 1.2 mg/dl (0.2-1.0) H 05/07/22 19:28 AST 19 U/L (13-39) 05/07/22 19:28 ALT 22 U/L (7-52) 05/07/22 19:28 Alkaline Phosphatase 94 U/L (34-104) 05/07/22 19:28 Troponin I High Sens 4804.0 pg/ml (0-20) H* D 05/08/22 05:21 Total Protein 7.7 gm/dl (6.0-8.3) 05/07/22 19:28 Albumin 4.9 gm/dl (3.4-5.0) 05/07/22 19:28 Globulin 2.8 gm/dl (2.5-4.0) 05/07/22 19:28 Albumin/Globulin Ratio 1.8 (0.9-2) 05/07/22 19:28 Triglycerides 44 mg/dl (0-150) 05/08/22 05:21 Cholesterol 168 mg/dl (0-200) 05/08/22 05:21 LDL Cholesterol, Calc 99 mg/dl 05/08/22 05:21 VLDL Cholesterol, Calc 9 mg/dl (0-30) 05/08/22 05:21 HDL Cholesterol 60 mg/dl 05/08/22 05:21 Cholesterol/HDL Ratio 2.8 (0-5) 05/08/22 05:21 SARS-CoV-2, RNA, NAAT NEGATIVE (NEGATIVE) 05/07/22 22:56 Impressions Chest X-Ray 05/07/22 20:07 XR chest 1V portable CLINICAL HISTORY: Hypertension. COMPARISON STUDY: No previous studies for comparison. FINDINGS: Lung volumes are normal. Lungs are clear. There is no pneumothorax or pleural effusion. Cardiac size is normal. Mediastinal contours are normal. There is no evidence for pulmonary edema. IMPRESSION: No acute cardiopulmonary findings. ACT 112: Negative or not required by law. Electronically signed by: Maged Rich M.D. 05/07/2022 8:24 PM Chest CTA 05/07/22 21:01 CT angio chest PE protocol CT DOSE: 413.69 mGy.cm HISTORY: 62 years-old Male with PE. Acute shortness of breath with hypertension TECHNIQUE: Multiple CTA images of the chest were obtained after the intravenous administration of 114 ml Optiray. Coronal and sagittal MIPS were obtained from the axial data set and were submitted for review. All measurements were obtained according to NASCET criteria. A dose lowering technique was utilized adhering to the principles of ALARA. COMPARISON: Chest radiograph of same day FINDINGS: CTA: The heart is upper limits of normal in size. Extensive coronary artery calcifications. There is no pericardial effusion. Atherosclerosis of the thoracic aorta without aneurysm or dissection. There is descending thoracic aortic tortuosity. The opacified pulmonary artery is unremarkable. No filling defects are identified to suggest thromboembolic disease. CT CHEST: Subcentimeter right thyroid lobe calcifications. No pathologically enlarged lymph nodes. No pneumothorax, pleural effusion, airspace consolidation or overt pulmonary edema. No suspicious pulmonary nodules or masses are identified. Tiny calcified granuloma of the left lung apex. Central airways are patent. No acute process of the imaged upper abdomen. Subcentimeter hypodensity of the liver on image 12 is too small to characterize, likely a cyst. Bones appear intact with degenerative changes of the shoulders and spine. No acute fracture identified. IMPRESSION: Unremarkable CTA of the chest. No pulmonary emboli are identified. ACT 112: Negative or not required by law. The above report was generated using voice recognition software. It may contain grammatical, syntax or spelling errors. Electronically signed by: David Caro M.D. 05/08/2022 7:06 AM Medications Administered Current Inpatient Medications Acetaminophen (Acetaminophen 325 Mg Tab) 650 mg PO Q4H PRN PRN Reason: Pain or Fever Stop: 06/07/22 02:06 Aspirin (Aspirin 81 Mg Ectab) 81 mg PO DAILY [facility] Stop: 06/07/22 08:59 Last Admin: 05/08/22 08:02 Dose: 81 mg Atorvastatin Calcium (Atorvastatin 40 Mg Tab) [facility] Stop: 06/07/22 08:59 Carvedilol (Carvedilol 6.25 Mg Tab) 6.25 mg PO BID [facility] Stop: 06/07/22 02:06 Last Admin: 05/08/22 08:02 Dose: 6.25 mg Heparin Sodium/Dextrose (Heparin Sodium/Dextrose) 25,000 units in 500 mls @ 26 mls/hr IV .[id number] [facility]; Protocol Stop: 06/07/22 07:14 Last Admin: 05/08/22 08:22 Dose: 1,300 units/hr, 26 mls/hr Lisinopril (Lisinopril 10 Mg Tab) 10 mg PO [facility] Stop: 06/07/22 08:59 Nitroglycerin (Nitroglycerin Sl 0.4 Mg/Tab Tab) 0.4 mg SL UD PRN PRN Reason: Chest Pain Stop: 06/07/22 02:06 Polyethylene Glycol (Polyethylene (Miralax) 17 Gm Pack) 17 gm PO DAILY PRN PRN Reason: Constipation Stop: 06/07/22 02:06
[2022-05-08] MEDS ORDERED: ATORVASTATIN 40 MG TAB PO SCH (09:00)
[2022-05-08] MEDS: lisinopril 10 MG TAB PO SCH (09:52)
--- NOTE | 2022-05-08 10:48 | Hospitalist Progress Note ---
Date of Service May 08, 2022 Assessment & Plan (1) Hypertensive urgency: (2) CAD (coronary artery disease): (3) Type 2 myocardial infarction: Plan: Patient sent from urgent care to the ED after found to have hypertension. History of CAD status post stent in 2008. Reports abnormal stress test in August. On aspirin; reports following vegan diet and exercise. Hypertensive on admission. Others vital stable EKG shows normal sinus rhythm with ST depression in lateral leads CT angio chest no PE High-sensitivity troponin 100 on admission up trended to 4000. Plan; Cardiology on board. - Currently on heparin drip. Started on aspirin, statin, Coreg and lisinopril. Will increase Coreg to 12.5 if continues to be hypertensive. Monitor on telemetry Patient had discussion with cardiology; does not want cardiac catheterization. Diet resumed. Plan DVT Heparin drip Full code Admission and Anticipated Discharge Date Admission Date: May 07, 2022 Subjective Patient seen and examined at bedside. Is comfortably lying in the bed; not in distress. Does not complain of chest pain or shortness of breath. Review of Systems Review of Systems: All systems reviewed & are unremarkable except as noted in Subjective Physical Exam Physical Exam: Constitutional: WD/WN, vitals as above, NAD, sitting up in bed, pleasant, conversing easily Respiratory: normal respiratory effort, lungs clear to auscultation, no wheeze, rales, rhonchi. Normal insp/exp effort, no accessory muscle use Cardiovascular: RRR, no murmur, no edema Vessels: no JVD or carotid bruit Chest: normal inspection of chest Abdomen: normal bowel sounds, soft, nontender, no hepatosplenomegaly Musculoskeletal: no cyanosis or clubbing, extremities motor strength 5/5 Skin: no rashes, warm and dry normal turgor Neurologic: PERRL, EOMI, accommodation nl, no face palsy, no dysarthria CN's II- XI intact bilaterally and moves all extremities Psychiatric: A+Ox3, euthymic affect Lymphatic: no cervical or axillary lymphadenopathy : deferred Results & Data Results & Data ([facility]) Vital Signs (Past 12 Hours) Vital Signs Temp Pulse Pulse Resp BP BP BP 05/08/22 09:50 36.8 C 68 16 182/100 H 05/08/22 08:00 186/95 H 05/08/22 08:06 36.9 C 80 16 05/08/22 02:12 37.5 C 68 16 160/85 H 05/08/22 03:19 36.3 C L 66 16 159/86 H 05/08/22 02:12 37.5 C 68 16 160/85 H 05/08/22 01:58 68 05/08/22 01:45 05/08/22 00:45 80 13 161/93 H 05/08/22 00:30 78 10 L 148/94 H 05/08/22 00:15 78 11 L 155/84 H 05/07/22 23:45 79 19 161/88 H 05/07/22 23:43 150/91 H 05/07/22 23:00 176/97 H 05/07/22 22:54 182/105 H Pulse Ox O2 Del Method 05/08/22 09:50 98 Room Air 05/08/22 08:00 05/08/22 08:06 99 Room Air 05/08/22 02:12 99 Room Air 05/08/22 03:19 98 Room Air 05/08/22 02:12 99 Room Air 05/08/22 01:58 05/08/22 01:45 Room Air 05/08/22 00:45 97 05/08/22 00:30 98 05/08/22 00:15 99 05/07/22 23:45 05/07/22 23:43 05/07/22 23:00 05/07/22 22:54 Laboratory Results Laboratory Results WBC 11.37 K/ul (4.8-10.8) H 05/08/22 05:21 RBC 4.91 M/uL (4.63-6.08) 05/08/22 05:21 Hgb 15.1 g/dl (14.0-18.0) 05/08/22 05:21 Hct 43.5 % (40.1-51.0) 05/08/22 05:21 MCV 88.6 fL (80.0-100.0) 05/08/22 05:21 MCH 30.8 pg (25.0-34.0) 05/08/22 05:21 MCHC 34.7 g/dL (32.0-36.0) 05/08/22 05:21 RDW Std Deviation 40.6 fL (36.4-46.3) 05/08/22 05:21 RDW Coeff of Trever 12.4 % (11.5-14.5) 05/08/22 05:21 Plt Count 241 K/uL (130-400) 05/08/22 05:21 MPV 9.9 fL (9.4-12.4) 05/08/22 05:21 Immature Gran % (Auto) 0.3 % 05/08/22 05:21 Neut % (Auto) 81.8 % 05/08/22 05:21 Lymph % (Auto) 10.6 % 05/08/22 05:21 Mcculloch % (Auto) 6.9 % 05/08/22 05:21 Eos % (Auto) 0.2 % 05/08/22 05:21 Baso % (Auto) 0.2 % 05/08/22 05:21 Neut # (Auto) 9.30 K/uL (1.4-6.5) H 05/08/22 05:21 Lymph # (Auto) 1.21 K/uL (1.2-3.4) 05/08/22 05:21 Mcculloch # (Auto) 0.79 K/uL (0.24-0.82) 05/08/22 05:21 Eos # (Auto) 0.02 K/uL (0-0.50) 05/08/22 05:21 Baso # (Auto) 0.02 K/uL (0-0.2) 05/08/22 05:21 Immature Gran # (Auto) 0.03 K/uL (0.00-0.02) H 05/08/22 05:21 PT 10.9 Seconds (9.0-12.0) 05/07/22 19:28 INR 1.0 (0.9-1.1) 05/07/22 19:28 APTT 25.8 Seconds (21.0-31.0) 05/07/22 19:28 PTT Ratio 0.9 05/07/22 19:28 Sodium 140 mmol/L (136-145) 05/08/22 05:21 Potassium 3.7 mmol/L (3.5-5.1) 05/08/22 05:21 Chloride 107 mmol/L (98-107) 05/08/22 05:21 Carbon Dioxide 27 mmol/L (21-32) 05/08/22 05:21 Anion Gap 6 (3-11) 05/08/22 05:21 BUN 10 mg/dl (6-23) 05/08/22 05:21 Creatinine 0.64 mg/dl (0.6-1.4) 05/08/22 05:21 Est Cr Clr Drug Dosing 115.8 ml/min 05/08/22 05:21 Est GFR ( Amer) 121.6 ml/min 05/08/22 05:21 Est GFR (Non-Af Amer) 104.9 ml/min 05/08/22 05:21 BUN/Creatinine Ratio 15.6 (10-20) 05/08/22 05:21 Glucose 111 mg/dl (70-99(Fasting)) H 05/08/22 05:21 Calcium 9.8 mg/dl (8.5-10.1) 05/08/22 05:21 Magnesium 2.1 mg/dl (1.7-2.4) 05/08/22 05:21 Total Bilirubin 1.2 mg/dl (0.2-1.0) H 05/07/22 19:28 AST 19 U/L (13-39) 05/07/22 19:28 ALT 22 U/L (7-52) 05/07/22 19:28 Alkaline Phosphatase 94 U/L (34-104) 05/07/22 19:28 Troponin I High Sens 4804.0 pg/ml (0-20) H* D 05/08/22 05:21 Total Protein 7.7 gm/dl (6.0-8.3) 05/07/22 19:28 Albumin 4.9 gm/dl (3.4-5.0) 05/07/22 19:28 Globulin 2.8 gm/dl (2.5-4.0) 05/07/22 19:28 Albumin/Globulin Ratio 1.8 (0.9-2) 05/07/22 19:28 Triglycerides 44 mg/dl (0-150) 05/08/22 05:21 Cholesterol 168 mg/dl (0-200) 05/08/22 05:21 LDL Cholesterol, Calc 99 mg/dl 05/08/22 05:21 VLDL Cholesterol, Calc 9 mg/dl (0-30) 05/08/22 05:21 HDL Cholesterol 60 mg/dl 05/08/22 05:21 Cholesterol/HDL Ratio 2.8 (0-5) 05/08/22 05:21 SARS-CoV-2, RNA, NAAT NEGATIVE (NEGATIVE) 05/07/22 22:56 Impressions Chest X-Ray 05/07/22 20:07 XR chest 1V portable CLINICAL HISTORY: Hypertension. COMPARISON STUDY: No previous studies for comparison. FINDINGS: Lung volumes are normal. Lungs are clear. There is no pneumothorax or pleural effusion. Cardiac size is normal. Mediastinal contours are normal. There is no evidence for pulmonary edema. IMPRESSION: No acute cardiopulmonary findings. ACT 112: Negative or not required by law. Electronically signed by: Maged Rich M.D. 05/07/2022 8:24 PM Chest CTA 05/07/22 21:01 CT angio chest PE protocol CT DOSE: 413.69 mGy.cm HISTORY: 62 years-old Male with PE. Acute shortness of breath with hypertension TECHNIQUE: Multiple CTA images of the chest were obtained after the intravenous administration of 114 ml Optiray. Coronal and sagittal MIPS were obtained from the axial data set and were submitted for review. All measurements were obtained according to NASCET criteria. A dose lowering technique was utilized adhering to the principles of ALARA. COMPARISON: Chest radiograph of same day FINDINGS: CTA: The heart is upper limits of normal in size. Extensive coronary artery calcifications. There is no pericardial effusion. Atherosclerosis of the thoracic aorta without aneurysm or dissection. There is descending thoracic aortic tortuosity. The opacified pulmonary artery is unremarkable. No filling defects are identified to suggest thromboembolic disease. CT CHEST: Subcentimeter right thyroid lobe calcifications. No pathologically enlarged lymph nodes. No pneumothorax, pleural effusion, airspace consolidation or overt pulmonary edema. No suspicious pulmonary nodules or masses are identified. Tiny calcified granuloma of the left lung apex. Central airways are patent. No acute process of the imaged upper abdomen. Subcentimeter hypodensity of the liver on image 12 is too small to characterize, likely a cyst. Bones appear intact with degenerative changes of the shoulders and spine. No acute fracture identified. IMPRESSION: Unremarkable CTA of the chest. No pulmonary emboli are identified. ACT 112: Negative or not required by law. The above report was generated using voice recognition software. It may contain grammatical, syntax or spelling errors. Electronically signed by: David Caro M.D. 05/08/2022 7:06 AM
[2022-05-08 15:22] LABS: Partial Thromboplastin Ratio 1.3; Partial Thromboplastin Time 36.2 Seconds (21.0-31.0)
--- NOTE | 2022-05-08 16:43 | Electrocardiogram Report ---
Test Reason : Blood Pressure : / mmHG Vent. Rate : 107 BPM Atrial Rate : 107 BPM P-R Int : 176 ms QRS Dur : 106 ms QT Int : 338 ms P-R-T Axes : 041 -05 079 degrees QTc Int : 451 ms Poor data quality, interpretation may be adversely affected Sinus tachycardia Possible Left atrial enlargement Poor R wave progression, consider anterior GA vs. lead placement vs. LVH Abnormal ECG No previous ECGs available Confirmed by Tanner Antoine ([id number]) on 05/08/2022 4:43:23 PM Referred By: REFERRED SELF Confirmed By:Tanner Antoine
--- NOTE | 2022-05-08 16:44 | Electrocardiogram Report ---
Test Reason : Blood Pressure : / mmHG Vent. Rate : 081 BPM Atrial Rate : 081 BPM P-R Int : 164 ms QRS Dur : 108 ms QT Int : 390 ms P-R-T Axes : 018 -05 -17 degrees QTc Int : 453 ms Normal sinus rhythm Nonspecific T wave abnormality Abnormal ECG When compared with ECG of 07-MAY-2022 19:21, (unconfirmed) ST no longer depressed in Lateral leads T wave inversion now evident in Inferior leads Confirmed by Tanner Antoine ([id number]) on 05/08/2022 4:44:18 PM Referred By: REFERRED SELF Confirmed By:Tanner Antoine
--- NOTE | 2022-05-08 16:46 | Electrocardiogram Report ---
Test Reason : Blood Pressure : / mmHG Vent. Rate : 063 BPM Atrial Rate : 063 BPM P-R Int : 176 ms QRS Dur : 108 ms QT Int : 422 ms P-R-T Axes : 034 -12 -27 degrees QTc Int : 431 ms Normal sinus rhythm Incomplete right bundle branch block Nonspecific T wave abnormality Abnormal ECG When compared with ECG of 07-MAY-2022 20:43, (unconfirmed) No significant change was found Confirmed by Tanner Antoine ([id number]) on 05/08/2022 4:46:34 PM Referred By: REFERRED SELF Confirmed By:Tanner Antoine
[2022-05-08] MEDS ORDERED: carvediloL 12.5 MG TAB PO SCH (21:00)
--- NOTE | 2022-05-09 06:46 | Communication Note ---
Date of Service: May 09, 2022 Patient was worried as his BP dropped too much about taking coreq 12.5mg last night. Chnaged coreg to 6.25mg bid for now. Close monitor. Will notify Am providers. Thanks
[2022-05-09 07:15] LABS: Basophils # (auto) 0.05 K/uL (0-0.2); Basophils % (auto) 0.6 %; Eosinophils % (auto) 1.2 %; Hematocrit (blood only) 46.6 % (40.1-51.0); Immature Granulocytes # (auto) 0.02 K/uL (0.00-0.02); Immature Granulocytes % (auto) 0.2 %; Lymphocytes # (auto) 2.31 K/uL (1.2-3.4); Lymphocytes % (auto) 27.7 %; Mean Corpuscular Hemoglobin 30.9 pg (25.0-34.0); Mean Corpuscular Hgb Conc 34.3 g/dL (32.0-36.0); Mean Corpuscular Volume 90.1 fL (80.0-100.0); Mean Platelet Volume 10.2 fL (9.4-12.4); Monocytes # (auto) 0.84 K/uL (0.24-0.82); Monocytes % (auto) 10.1 %; Neutrophils # (auto) 5.03 K/uL (1.4-6.5); Neutrophils % (auto) 60.2 %; Platelet Count 247 K/uL (130-400); RDW Coefficient of Variation 12.7 % (11.5-14.5); RDW Standard Deviation 41.6 fL (36.4-46.3); Red Blood Count 5.17 M/uL (4.63-6.08); White Blood Count 8.35 K/ul (4.8-10.8)
[2022-05-09 07:42] LABS: Albumin Globulin Ratio 1.6 (0.9-2); Albumin Level 4.1 gm/dl (3.4-5.0); BUN Creatinine Ratio 17.8 (10-20); Calcium 9.3 mg/dl (8.5-10.1); Creatinine Clr Calc Pharmacy 82.3 ml/min; Est GFR (African American) 105.7 ml/min; Est GFR (Non-African American) 91.2 ml/min; Globulin 2.5 gm/dl (2.5-4.0); Potassium 3.9 mmol/L (3.5-5.1); Total Protein 6.6 gm/dl (6.0-8.3)
[2022-05-09] MEDS: carvediloL 6.25 MG TAB PO SCH (08:03)
[2022-05-09] MEDS: ASPIRIN 81 MG ECTAB PO SCH (08:04)
[2022-05-09] MEDS: lisinopril 10 MG TAB PO SCH (08:04)
[2022-05-09] MEDS: ROSUVASTATIN CALCIUM 10 MG TAB PO SCH ×2 (08:04→08:09)
--- NOTE | 2022-05-09 11:45 | Discharge Summary ---
Date of Service May 09, 2022 Admission HPI Per Admitting Provider This is a 62-year-old male with past medical history significant for coronary artery disease, status post cardiac stent placement in 2008, seems to be in [place]. Currently taking only aspirin 81 mg p.o. daily. The patient states he is not taken any cardiac medications for a long time and in July of this year, he had COVID, and one month later in August after eating a big lunch, he noticed some upper abdominal discomfort and also some of this pain going into the shoulder. As it was not getting better, he saw GI and they advised to get cardiac evaluation. He went to [place] to his sba business development officer and got his stress test, which he failed. At that time, the sba business development officer recommended for cardiac catheterization, but the patient at that time was reading a book called "The End of Heart Disease" and as per the patient in the book , for stable angina, you do not need any medical treatment, you can cure it with diet and he refused to do cardiac catheterization and he is using mostly vegan diet, except once in a while salmon and once in a while eggs and he lost about 35 pounds. Initially before starting the vegy diet minimal exertion would cause him some chest discomfort, but now he says he is walking long distances without any discomfort. Once in a while, walking uphill brings mild chest discomfort, but not much, even he was riding a bike, and he was doing okay, but lately he also started learning trumpet and as he was blowing the trumpet, he felt his ears were ringing and he went to urgent care where they found the blood pressure was high and sent him here. The patient says his blood pressure was running in 140s usually, and he agrees to be on blood pressure medication. When he came in, blood pressure was in like 170s to 190s. He was given a dose of labetalol and also a dose of hydralazine, and currently it is 150/91. Resting comfortably. The patient denies any chest pain, no shortness of breath, no headache, no blurred visions, no earache. Has some occasional runny nose, no sore throat, no cough, no fevers, no nausea, no abdominal pain. Normal bowel and bladder movements. No swelling in the legs. The patient says he wants to complete vegan diet now and refuses for an elective cardiac catheterization. If he gets acute heart attack, he is okay for cardiac catheterization and he is okay to take blood pressure medication for now and he thinks with continuing with vegan diet, the blood pressure will come down later and he says he is going to follow up with his family doctor and his sba business development officer regarding that. Admission Exam Per Admitting Provider GENERAL: The patient is of moderate build, not in acute distress. VITAL SIGNS: Temperature 37, pulse 84, respiratory rate 22, when he came in blood pressure was 190/101, currently 150/91, and oxygen 100% on room air. HEENT: Pupils equal, round and reactive to light. Oral mucosa moist. NECK: No JVD, no neck masses. CARDIOVASCULAR: S1 and S2 heard. Regular rate and rhythm. No murmur, no gallop. RESPIRATORY SYSTEM: Normal AP diameter. No accessory muscle use. No wheezing, no crackles. ABDOMEN: Soft, bowel sounds present, nontender, no distention. CENTRAL NERVOUS SYSTEM: Cranial nerves II-XII grossly intact, nonfocal. EXTREMITIES: No edema, no erythema. Principal Diagnosis (1) Hypertensive urgency: (2) CAD (coronary artery disease): (3) Type 2 myocardial infarction: Discharge Exam Constitutional: WD/WN, vitals as above, NAD, sitting up in bed, pleasant, conversing easily Respiratory: normal respiratory effort, lungs clear to auscultation, no wheeze, rales, rhonchi. Normal insp/exp effort, no accessory muscle use Cardiovascular: RRR, no murmur, no edema Vessels: no JVD or carotid bruit Chest: normal inspection of chest Abdomen: normal bowel sounds, soft, nontender, no hepatosplenomegaly Musculoskeletal: no cyanosis or clubbing, extremities motor strength 5/5 Skin: no rashes, warm and dry normal turgor Neurologic: PERRL, EOMI, accommodation nl, no face palsy, no dysarthria CN's II- XI intact bilaterally and moves all extremities Psychiatric: A+Ox3, euthymic affect Lymphatic: no cervical or axillary lymphadenopathy : deferred Discharge Data Allergies Allergy/AdvReac Type Severity Reaction Status Date / Time No Known Allergies Allergy Unverified 05/07/22 21:10 Consultations 05/07/22 22:50 ED Decision to Admit Stat 05/08/22 08:00 Consult Cardiology Routine 05/08/22 09:22 HIM [Consult Health Information Management] Routine Ordered Studies 05/07/22 21:01 CT angio chest PE protocol Urgent Hospital Course (1) Type 2 myocardial infarction: (2) Hypertensive urgency: (3) CAD (coronary artery disease): Plan Patient is a 62-year-old male with past medical history of CAD status post stenting 2008, abnormal stress test in August 2021 was sent from urgent care to the ED after found to have high blood pressure. His blood pressure on admission was in the range of 1 70-1 90/90-100 mmHg. His EKG showed normal sinus rhythm with ST depression in lateral leads. CT angio chest was negative for PE. High sensitive troponin was 100 on admission which up trended to 4000. Patient was started on aspirin, heparin, statin, Coreg and lisinopril. Cardiology was consulted. Patient underwent echocardiogram which showed EF of 60 to 65%; very subtle hypokinesis of the posterior wall at the base. As per recommendation by cardiology, heparin was stopped. His high-sensitivity troponin down trended. Patient blood pressure improved gradually during the hospitalization. Patient was given prescription for Coreg, lisinopril and Crestor. Patient to follow-up with PCP and cardiology as outpatient. Total Time Total Time Spent Total Time Spent (In Minutes): 35 Total Time Includes: Examination of the Patient, Discharge Planning, Medication Reconciliation, Communication With Other Providers and Other Discharge Plan Discharge Items Patient Disposition: Home - Self-Care Reason For Visit: ELEVATED BLOOD PRESSURE Discharge Diagnosis: Hypertensive urgency Type II demand ischemia Activity: Resume your previous activity Non-emergency contact: Primary Care Provider Call non-emergency contact if: you have any medication questions and your symptoms worsen Follow-up/Referrals: Adria Ch, [Primary Care Provider] - (Date & Time 05/14/2022 3:00 PM Provider Carmina Villegas PA-C Department [facility] ) Diet: Heart Healthy Addtl Attending Provider Instructions: You were admitted to the hospital with high blood pressure and elevated troponin. You were started on following medication: 1) Carvedilol 6.25 mg twice daily 2) Lisinopril 10 mg once daily 3) Crestor 10 mg once daily. Please measure your blood pressure at home in the morning. Take the blood pressure in a seated position with both feet on the ground and your arm relaxed. Please document the blood pressure and take the readings to your primary care doctor's office and sba business development officer office. Continue to take aspirin. You have follow-up appointment with your primary care doctor on 14 May at 3 PM. Pending Studies at Discharge: No Stand-Alone Forms: My [facility], Smoking Cessation Medications and DC Order Prescriptions: New carvedilol 6.25 mg Tablet 6.25 mg PO BID Qty: 60 0RF lisinopril 10 mg Tablet 10 mg PO QAM Qty: 30 0RF rosuvastatin 10 mg Tablet 10 mg PO QAM Qty: 30 0RF Continued aspirin [Aspirin Low-Strength] 81 mg Tablet,Delayed Release (Dr/Ec) 81 mg PO DAILY Discharge Orders: Discharge Order (Routine); Ordered 05/09/22 Ordered By: Min Diaz Admission Data Admit Date/Time: 05/07/22 23:47 Attending Provider: Min Diaz Admit Provider: Delio Valenzuela Primary Care Provider: Adria Ch Other Providers: Delio Valenzuela ; Donal Schuster ; Antonio Davison ; Nate Muñoz ; Oscar Zuniga ; ManuelitoChalo wilkins ; Shine Reyes ; Debby Winston ; Brianda Quezada ; Mai Baxter ; Unruly Zee
--- NOTE | 2022-05-09 13:22 | Cardiology Progress Note ---
Date of Service May 09, 2022 Assessment & Plan (1) NSTEMI (non-ST elevated myocardial infarction): (2) Elevated troponin: (3) CAD (coronary artery disease): (4) Hypertensive urgency: (5) Dyslipidemia: (6) Statin declined: Plan Patient admitted with hypertensive urgency. Minimally elevated troponin on arrival, trending upward to 4800 this morning, consistent with NSTEMI. Abnormal EKG concerning for underlying ischemia, ST depression in lateral leads on admission. Improved on repeat but with persistent T wave inversion in inferior leads. We discussed cardiac catheterization in detail. He has underlying known coronary artery disease with prior NSTEMI to the inferior wall in 2008 receiving stent to the RCA. He had abnormal nuclear stress test in September 2021 and declined cardiac cath at that time. Currently states he feels well. Was little nervous about low blood pressure reading this a.m. given the advice that he read in a book No complaints overnight. Okay to DC to home. My office will call to arrange follow-up with Dr. Muñoz. Admission and Anticipated Discharge Date Admission Date: May 07, 2022 Subjective Patient seen and examined. Chart reviewed. Telemetry reviewed. Review of Systems Review of Systems: All systems reviewed & are unremarkable except as noted in HPI & below Physical Exam Physical Exam: General: Awake, alert and oriented x 3. No acute distress. HEENT: Normocephalic, atraumatic. Pupils equal, round and reactive to light and accommodation. Extraocular muscles are intact. Anicteric sclera. Moist mucous membranes. Neck: No JVD. No bruit. Cardiovascular: Regular. Positive S-4. Normal S-1 and S-2. No S-3. No murmurs or rubs. Pulmonary: Clear to auscultation B/L. No rales, rhonchi or wheezing Abdomen: Bowel sounds x 4, soft. No rebound, guarding or tenderness. No organomegaly. Extremities: No clubbing, cyanosis or edema. +2 pedal pulses bilaterally. Skin: Warm and dry. Results & Data ([facility]) Vital Signs (Past 12 Hours) Vital Signs Temp Pulse Pulse Resp BP BP Pulse Ox 05/09/22 12:01 37.2 C 58 L 19 145/75 H 115/71 97 05/09/22 11:53 37.2 C 58 L 19 145/75 H 97 05/09/22 07:42 50 L 05/09/22 06:31 36.4 C L 56 L 18 151/84 H 96 05/09/22 03:23 36.4 C L 55 L 18 96/57 L 97 O2 Del Method 05/09/22 12:01 05/09/22 11:53 Room Air 05/09/22 07:42 05/09/22 06:31 Room Air 05/09/22 03:23 Room Air
--- NOTE | 2022-05-10 23:07 | Electrocardiogram Report ---
Test Reason : Blood Pressure : / mmHG Vent. Rate : 056 BPM Atrial Rate : 056 BPM P-R Int : 164 ms QRS Dur : 114 ms QT Int : 446 ms P-R-T Axes : 023 -01 -23 degrees QTc Int : 430 ms Sinus bradycardia Otherwise normal ECG When compared with ECG of 08-MAY-2022 05:48, Incomplete right bundle branch block is no longer Present Confirmed by Hilario Stapleton ([id number]) on 05/10/2022 11:06:55 PM Referred By: REFERRED SELF Confirmed By:Hilario Stapleton
== END 2022-05-09 13:17 | disposition home or self-care (01) | DRG 282 ==
LOC: ED 18:46 → 2S 23:47

== ENCOUNTER 2024-12-08 11:53 | Observation (INO) ==
--- NOTE | 2024-12-08 12:24 | Emergency Department Note ---
Impression & Plan Transaminitis, Abdominal pain, Acute hyponatremia, Suicidal ideations ED Provider Note NAME: DARCIE VO AGE: 64 SEX: M : 1960 ARRIVES VIA: Walk-In INFORMANT: Patient ED PROVIDER(S): Roly Dumas DO CHIEF COMPLAINT: Headache HPI: Patient is a 64-year-old male who presents to the ER for headache. He notes that he has had headaches for the past 2 years. They are in the frontal region and go back. He notes initially they were fairly rare and he was attributing them to different foods and then he started cutting these foods out. Now he feels as though he cannot eat anything because he was initially down to chicken and greens which are now giving him headaches. He denies any change or loss of vision. No chest pain or shortness of breath. No nausea vomiting or diarrhea. No weakness or numbness in the arms or legs. No other exacerbating or remitting factors. Admits to passive suicidal thoughts. Denies any homicidal ideations. He notes he feels like there is not much left to live for but notes that he would never kill himself. ADDITIONAL HISTORY OBTAINED: Per HPI Chronic Medical/Social Conditions Affecting Care: Per HPI PAST MEDICAL HISTORY:See Below PAST SURGICAL HISTORY:See Below FAMILY HISTORY:See Below SOCIAL HISTORY:See Below HOME MEDICATIONS:See Below ALLERGIES:See Below VITALS:See Below PHYSICAL EXAMINATION: GENERAL: Sitting up in bed, alert, well appearing, well nourished, no distress, non-toxic EYE EXAM: normal conjunctiva. PERRL and EOM's intact. OROPHARYNX: no exudate, no erythema, lips, buccal mucosa, and tongue normal and mucous membranes are moist NECK: supple, no nuchal rigidity, no adenopathy, non-tender LUNGS: Clear to auscultation. Normal chest wall mechanics HEART: no murmurs, S1 normal and S2 normal ABDOMEN: abdomen soft, non-tender, normo-active bowel sounds, no masses, no rebound or guarding. BACK: Back is symmetrical on inspection and there is no deformity, no midline tenderness, no CVA tenderness. SKIN: no rashes and no bruising UPPER EXTREMITIES: upper extremities are grossly normal. LOWER EXTREMITIES: No pitting edema. NEURO EXAM: Normal sensorium, cranial nerves II-XI intact, normal speech, no weakness of arms, no weakness of legs. No drift. Finger to nose intact. Gross sensation intact. PSYCH: Admits to passive suicidal thoughts. No auditory hallucinations. No homicidal ideations. Makes good eye contact. MEDICAL DECISION MAKING: Patient is a 64-year-old male who presents ER for the above-stated complaint. IV was established and blood work was obtained. Labs show no significant leukocytosis or anemia. BMP with a mild hyponatremia at 133. Mild transaminitis at 90 and 400. TSH unremarkable. UA was clean. Tox was negative. Alcohol was negative. CT abdomen pelvis showed no acute pathology. Patient does admit to passive suicidal thoughts. Discussed case with psychiatric nurse behavioral health care who evaluated the patient. They recommended admission. Discussed case with hospitalist for further evaluation management treatment due to suicidal thoughts in combination with the transaminitis as no psychiatric facility would accept this. Consults/Care Managements Discussions: Per [facility] Triage Nursing notes reviewed. Limited review of prior medical records performed Vital Signs: reviewed and remarkable for no significant abnormalities Differential diagnosis: Differential Diagnosis includes but is not limited to headache, tension headache, cluster headache, migraine, subarachnoid hemorrhage, meningitis, mass, central venous thrombus, concussion, trauma and epidural/subdural hemorrhage. ER treatment provided: See below Diagnostics interpreted by me include EKG and cardiac monitoring as listed below: -Cardiac Monitoring: An order was placed for continuous cardiac monitoring. The monitor shows a rate of 60 with sinus rhythm. -ECG: none -Laboratory studies:Interpreted by me as stated above in MDM and shown below. Imaging studies: Xrays: As interpreted by me:none CTs show: CT head per my preliminary interpretation showed no large mass CT head per radiology showed no acute pathology CT abdomen pelvis showed no pathology Procedures:none Critical Care: None Past Med/Surg History Problem List (Updated 12/08/24 @ 17:59 by Roly Dumas DO) Suicidal ideations (Acute) Acute hyponatremia (Acute) Abdominal pain (Acute) Hypertension Transaminitis (Acute) Statin declined CAD (coronary artery disease) Medical History Type 2 myocardial infarction Dyslipidemia Hypertensive urgency NSTEMI (non-ST elevated myocardial infarction) Elevated troponin Social History Smoking Status: Never smoker Second Hand Exposure: No; Do You Dip or Chew Tobacco: No; Hx Alcohol Use: Yes Alcohol type: beer Hx Substance Use: No Preferred Language: Persian Communication Ability: Effective Cro[employer] Required: No Beliefs That Will Affect Care: None Current Living Situation: Alone Feels Safe at Home: Yes Assistive Devices: None Allergies Allergies Allergy/AdvReac Type Severity Reaction Status Date / Time No Known Allergies Allergy Unverified 12/08/24 15:50 Home Meds Home Medications Medication Instructions Recorded Confirmed clonazepam 0.5 mg tablet 0.5 mg PO QID 12/08/24 12/08/24 losartan 100 mg tablet 75 mg PO QAM 12/08/24 12/08/24 metoprolol succinate 50 mg 37.5 mg PO QAM 12/08/24 12/08/24 tablet,extended release 24 hr Results & Data (ED) Vital Signs Vital Signs - 24 hr 12/08/24 12:03 12/08/24 15:04 12/08/24 15:04 Temperature 36.7 C Temperature Source Temporal Artery Scan Pulse Rate 65 59 L Pulse Rate [Finger] 59 L Respiratory Rate 17 Respiratory Effort / Characteristics Non-Labored Spontaneous Respiratory Depth Normal Blood Pressure 119/72 Blood Pressure [Right Arm] 122/80 Blood Pressure Mean 87 Blood Pressure Mean [Right Arm] 94 Pulse Oximetry 97 98 98 Oxygen Delivery Method Room Air Room Air Room Air Sepsis Recent Fever Within 48 Hours No Sepsis New/Unexplained Change in Mental Status N/A Sepsis Action Taken by Nursing No Action Required 12/08/24 16:54 Temperature Temperature Source Pulse Rate 54 L Pulse Rate [Finger] Respiratory Rate Respiratory Effort / Characteristics Respiratory Depth Blood Pressure Blood Pressure [Right Arm] Blood Pressure Mean Blood Pressure Mean [Right Arm] Pulse Oximetry Oxygen Delivery Method Sepsis Recent Fever Within 48 Hours Sepsis New/Unexplained Change in Mental Status Sepsis Action Taken by Nursing Laboratory Data 12/08/24 12:36 12/08/24 12:36 Lab Results 12/08/24 12/08/24 12/08/24 Range/Units 12:32 12:36 13:50 WBC 6.46 (4.8-10.8) K/ul RBC 4.69 L (4.70-6.10) M/uL Hgb 15.1 (14.0-18.0) g/dl Hct 42.0 (42.0-52.0) % MCV 89.6 (80.0-100.0) fL MCH 32.2 (25.0-34.0) pg MCHC 36.0 (32.0-36.0) g/dL RDW Std Deviation 39.8 (36.4-46.3) fL RDW Coeff of Trever 12.2 (11.5-14.5) % Plt Count 227 (130-400) K/uL MPV 10.3 (9.4-12.4) fL Immature Gran % (Auto) 0.2 % Neut % (Auto) 73.8 % Lymph % (Auto) 16.4 % Villalba % (Auto) 7.3 % Eos % (Auto) 1.5 % Baso % (Auto) 0.8 % Neut # (Auto) 4.77 (1.40-6.50) K/uL Lymph # (Auto) 1.06 L (1.20-3.40) K/uL Villalba # (Auto) 0.47 (0.11-0.59) K/uL Eos # (Auto) 0.10 (0.00-0.50) K/uL Baso # (Auto) 0.05 (0.00-0.20) K/uL Immature Gran # (Auto) 0.01 (0.01-0.20) K/uL Sodium 133 L (136-145) mmol/L Potassium 4.3 (3.5-5.1) mmol/L Chloride 102 (98-107) mmol/L Carbon Dioxide 26 (21-32) mmol/L Anion Gap 5 (3-11) BUN 32 H (6-23) mg/dl Creatinine 0.85 (0.6-1.4) mg/dl Est Cr Clr Drug Dosing 82.1 ml/min eGFR 97.03 BUN/Creatinine Ratio 37.6 H (10-20) Glucose 84 (70-99(Fasting)) mg/dl Estimat Average Glucose 105 mg/dl Hemoglobin A1c 5.3 (4.5-5.6) % Calcium 9.6 (8.6-10.3) mg/dl Iron 90 (35-175) mcg/dl TIBC 409 (250-450) mcg/dl Transferrin 292 (200-360) mg/dl Transferrin % Sat 22 (20-50) % Ferritin 130.0 (8-388) ng/ml Total Bilirubin 1.2 H (0.2-1.0) mg/dl AST 90 H (13-39) U/L ALT 402 H (7-52) U/L Alkaline Phosphatase 82 (34-104) U/L Total Protein 7.4 (6.0-8.3) gm/dl Albumin 4.3 (3.4-5.0) gm/dl Globulin 3.1 (2.5-4.0) gm/dl Albumin/Globulin Ratio 1.4 (0.9-2) Triglycerides 38 (0-150) mg/dl Cholesterol 115 (0-200) mg/dl LDL Cholesterol, Calc 58 mg/dl VLDL Cholesterol, Calc 8 (0-30) mg/dl HDL Cholesterol 49 mg/dl Cholesterol/HDL Ratio 2.3 (0-5) TSH 0.933 (0.300-4.500) uIu/ml Urine Color Yellow Urine Appearance Clear (Clear) Urine pH 5.5 (4.5-7.5) Ur Specific Newton 1.016 (1.000-1.030) Urine Protein Negative (Negative) Urine Glucose (UA) Negative (Negative) Urine Ketones Negative (Negative) Urine Blood Negative (Negative) Urine Nitrite Negative (Negative) Urine Bilirubin Negative (Negative) Urine Urobilinogen Negative (Negative) Ur Leukocyte Esterase Negative (Negative) Urine Comment Salicylates < 3.0 L (3.0-30) mg/dl Urine Opiates Screen Neg (Neg) Ur Methadone, Qual Neg (Neg) Urine Fentanyl Screen Neg (Neg) Acetaminophen < 3 L (10-30) ug/ml Urine Barbiturates Neg (Neg) Ur Phencyclidine (PCP) Neg (Neg) U Amphetamin/Meth Scrn Neg (Neg) MDMA (Ecstasy) Screen Neg (Neg) U Benzodiazepines Scrn Neg (Neg) Ur Cocaine Metabolite Neg (Neg) U Marijuana (THC) Screen Neg (Neg) Ethyl Alcohol mg/dL < 10.0 (<10.0) mg/dl Administered Medications Discontinued Medications Ioversol (Optiray 320 100ml) 94 ml IV ONCE ONE Stop: 12/08/24 14:44 Last Admin: 12/08/24 14:43 Dose: 94 ml Documented By: DEVI Imaging Data Radiologist's Impression: Head CT 12/08/24 12:21 CT SCAN OF THE BRAIN WITHOUT IV CONTRAST CLINICAL HISTORY: Headache. COMPARISON STUDY: None. TECHNIQUE: Unenhanced axial CT scan of the brain was performed from the vertex to the skull base. A dose lowering technique was utilized adhering to the principles of ALARA. CT DOSE: 625.8 mGy.cm FINDINGS: Brain parenchyma: No acute intracranial hemorrhage, midline shift or mass effect is present. Ortega-white matter differentiation is preserved. There are no extra- axial fluid collections. There are no findings to suggest acute dural sinus thrombosis or acute territorial infarct. Ventricles, sulci, cisterns: There is no hydrocephalus. The basal cisterns are patent. Calvarium: Unremarkable. Sinuses and mastoids: The visualized paranasal sinuses are clear. The mastoid air cells are well pneumatized. Orbits: The bony orbits are grossly intact. IMPRESSION: No acute intracranial findings. ACT 112: Negative or not required by law. Electronically signed by: Maged Rich M.D. 12/08/2024 1:09 PM Abdomen/Pelvis CT 12/08/24 14:29 CT SCAN OF THE ABDOMEN AND PELVIS WITH IV CONTRAST CLINICAL HISTORY: Nausea. Elevated hepatic transaminases. COMPARISON STUDY: No priors TECHNIQUE: Following the IV administration of 94 cc of Optiray 320, CT scan of the abdomen and pelvis is performed from the lung bases to the proximal femora. Images are reviewed in the axial, sagittal, and coronal planes. IV contrast was administered without complication. A dose lowering technique was utilized adhering to the principles of ALARA. CT DOSE: 651.45 mGy.cm FINDINGS: Lung bases: The heart is top normal in size and without pericardial effusion. The coronary arteries are densely calcified. The lung bases are clear. Liver: The contrast-enhanced liver is normal in size, contour, and attenuation. There is no intrahepatic biliary ductal dilatation. The hepatic veins and portal veins are patent. Gallbladder: Unremarkable. Spleen: Normal in size and attenuation. Pancreas: Unremarkable. Adrenal glands: Unremarkable. Kidneys: The contrast enhanced kidneys are normal in size and without hydronephrosis. The kidneys enhance symmetrically. A 1.5 cm cyst is noted on the left. Abdominal vasculature: The abdominal aorta is normal in course and caliber noting moderate to advanced atherosclerotic calcification. Bowel: There is moderate constipation. No bowel obstruction is seen. The appendix is not visualized. Peritoneum: There is no intraperitoneal free air or abdominal ascites. Lymphadenopathy: None. Pelvic viscera: The prostate gland is enlarged and heterogeneous. The bladder is distended but otherwise normal as imaged. Skeletal structures: No lytic or blastic lesions are seen. IMPRESSION: 1. No acute infectious or inflammatory findings are identified in the abdomen or pelvis. 2. Moderate constipation. 3. Advanced coronary artery atherosclerosis. 4. Additional findings as above. ACT 112: Negative or not required by law. Electronically signed by: Campbell Lombardo M.D. 12/08/2024 3:31 PM Discharge Plan Visit Data Chief Complaint: Headache Stated Complaint: ALL FOOD CAUSING MIGRAINES,ALOT OF ANXIETY, NO SLE ED Provider: Roly Dumas Discharge Problem: Transaminitis, Abdominal pain, Acute hyponatremia, Suicidal ideations Condition: Fair Forms Stand Alone Forms: zePASS Prescriptions Prescriptions: No Action metoprolol succinate 50 mg tablet extended release 24 hr 37.5 mg PO QAM clonazepam 0.5 mg tablet 0.5 mg PO QID Rx Instructions: strict routine of 0500,1100,1700,2300 losartan 100 mg tablet 75 mg PO QAM Referrals Referrals: Adria Ch DO [Primary Care Provider] - Discharge Problem: Abdominal pain Qualifiers: Abdominal location: unspecified location Qualified Code(s): R10.9 - Unspecified abdominal pain
[2024-12-08 12:48] LABS: Appearance Urine Clear (Clear); Glucose Urine UA Negative (Negative)
[2024-12-08 12:52] LABS: Hematocrit (blood only) 42.0 % (42.0-52.0); Hemoglobin 15.1 g/dl (14.0-18.0); Immature Granulocytes # (auto) 0.01 K/uL (0.01-0.20); Immature Granulocytes % (auto) 0.2 %; Mean Corpuscular Hemoglobin 32.2 pg (25.0-34.0); Mean Corpuscular Volume 89.6 fL (80.0-100.0); Platelet Count 227 K/uL (130-400); RDW Standard Deviation 39.8 fL (36.4-46.3); Red Blood Count 4.69 M/uL (4.70-6.10); White Blood Count 6.46 K/ul (4.8-10.8)
[2024-12-08 13:08] LABS: Acetaminophen < 3 ug/ml (10-30); Salicylate < 3.0 mg/dl (3.0-30)
--- NOTE | 2024-12-08 13:10 | CT Scan Report ---
CT SCAN OF THE BRAIN WITHOUT IV CONTRAST CLINICAL HISTORY: Headache. COMPARISON STUDY: None. TECHNIQUE: Unenhanced axial CT scan of the brain was performed from the vertex to the skull base. A dose lowering technique was utilized adhering to the principles of ALARA. CT DOSE: 625.8 mGy.cm FINDINGS: Brain parenchyma: No acute intracranial hemorrhage, midline shift or mass effect is present. Ortega-whi te matter differentiation is preserved. There are no extra-axial fluid collections. There are no find ings to suggest acute dural sinus thrombosis or acute territorial infarct. Ventricles, sulci, cisterns: There is no hydrocephalus. The basal cisterns are patent. Calvarium: Unremarkable. Sinuses and mastoids: The visualized paranasal sinuses are clear. The mastoid air cells are well pneu matized. Orbits: The bony orbits are grossly intact. IMPRESSION: No acute intracranial findings. ACT 112: Negative or not required by law. Electronically signed by: Maged Rich M.D. 12/08/2024 1:09 PM
[2024-12-08 13:12] LABS: Alanine Aminotransferase 402.0 U/L (7-52); Albumin Globulin Ratio 1.4 (0.9-2); Alkaline Phosphatase 82.0 U/L (34-104); Anion Gap 5.0 (3-11); Bilirubin,Total 1.2 mg/dl (0.2-1.0); Blood Urea Nitrogen 32.0 mg/dl (6-23); Calcium 9.6 mg/dl (8.6-10.3); Carbon Dioxide 26.0 mmol/L (21-32); Chloride 102.0 mmol/L (98-107); Creatinine Clr Calc Pharmacy 82.1 ml/min; Globulin 3.1 gm/dl (2.5-4.0); Glucose 84.0 mg/dl (70-99(Fasting)); Potassium 4.3 mmol/L (3.5-5.1); Sodium 133.0 mmol/L (136-145); Total Protein 7.4 gm/dl (6.0-8.3)
[2024-12-08 13:27] LABS: Thyroid Stimulating Hormone 0.933 uIu/ml (0.300-4.500)
[2024-12-08 13:56] LABS: Amphetamines+Metham, Urine Neg (Neg); MDMA (Ecstacy), Urine Neg (Neg); Marijuana, Urine Neg (Neg)
[2024-12-08] MEDS: OPTIRAY 320 100ml IV ONE (14:43)
--- NOTE | 2024-12-08 15:33 | CT Scan Report ---
CT SCAN OF THE ABDOMEN AND PELVIS WITH IV CONTRAST CLINICAL HISTORY: Nausea. Elevated hepatic transaminases. COMPARISON STUDY: No priors TECHNIQUE: Following the IV administration of 94 cc of Optiray 320, CT scan of the abdomen and pelvi s is performed from the lung bases to the proximal femora. Images are reviewed in the axial, sagittal , and coronal planes. IV contrast was administered without complication. A dose lowering technique wa s utilized adhering to the principles of ALARA. CT DOSE: 651.45 mGy.cm FINDINGS: Lung bases: The heart is top normal in size and without pericardial effusion. The coronary arteries a re densely calcified. The lung bases are clear. Liver: The contrast-enhanced liver is normal in size, contour, and attenuation. There is no intrahepa tic biliary ductal dilatation. The hepatic veins and portal veins are patent. Gallbladder: Unremarkable. Spleen: Normal in size and attenuation. Pancreas: Unremarkable. Adrenal glands: Unremarkable. Kidneys: The contrast enhanced kidneys are normal in size and without hydronephrosis. The kidneys enh ance symmetrically. A 1.5 cm cyst is noted on the left. Abdominal vasculature: The abdominal aorta is normal in course and caliber noting moderate to advance d atherosclerotic calcification. Bowel: There is moderate constipation. No bowel obstruction is seen. The appendix is not visualized. Peritoneum: There is no intraperitoneal free air or abdominal ascites. Lymphadenopathy: None. Pelvic viscera: The prostate gland is enlarged and heterogeneous. The bladder is distended but otherw ise normal as imaged. Skeletal structures: No lytic or blastic lesions are seen. IMPRESSION: 1. No acute infectious or inflammatory findings are identified in the abdomen or pelvis. 2. Moderate constipation. 3. Advanced coronary artery atherosclerosis. 4. Additional findings as above. ACT 112: Negative or not required by law. Electronically signed by: Campbell Lombardo M.D. 12/08/2024 3:31 PM
--- NOTE | 2024-12-08 16:34 | History & Physical Report ---
Date of Service December 08, 2024 Assessment & Plan (1) Transaminitis: Plan: Patient is a 64 year old M with a past medical history of LUNA, Insomnia, RAMIREZ with CPAP, dyslipidemia, CAD, HTN, Vitamin D deficiency presenting with headache. Patient reports having chronic headaches for ~2 years that he describes as "allergic type headaches" that are instigated by many different foods and medications; these triggers also cause insomnia. Headache worsened yesterday morning with his typical diet regimen and he came here for evaluation. Reportedly, he is highly anxious with everyday tasks, especially being here in the hospital; although, he feels comforted when talking to people. He states he is "supersensitive to medications", blood pressure meds have caused his sleep apnea, OTC supplements are taken to manage his "leaky gut" that was diagnosed by his family member. Transaminitis unknown etiology * Admit to Med Surg for further evaluation of transaminitis possibly 2/2 multiple OTC supplements * AST 90; ALT 402--> significantly elevated from previous assessment in 2023 when labs normal * CT abdomen/pelvis showing No acute infectious or inflammatory findings are identified in the abdomen or pelvis; Moderate constipation; Advanced coronary artery atherosclerosis. * Obtain Liver Ultrasound- ordered * Denies chronic ETOH use- UDS unremarkable * HBV/ HCV pending * A1C and iron studies pending #Hypertension: * BP stable here * Continue home BP meds and trend #Dyslipidemia: * CT Abd/Pelvis showing advanced coronary artery atherosclerosis; not currently on statin therapy d/t intolerance with myalgias * Will check lipid profile inpatient #Anxiety * Highly anxious with everyday activities;follows OP Psych in [place] and prescribed Clonazepam QID * Continue home clonazepam for now * Psych consult for additional recs and possible outpatient services #RAMIREZ * May use home CPAP #Constipation * CT abd showing moderate constipation with a benign abdominal exam * Miralax to be given DVT Ppx: Teds Code status: Full PCP: Dr. Adria Ch Dispo: Admit to Obs Patient seen in collaboration with Dr. Camacho. Please see addendum.I spent a total of 65 minutes coordinating, documenting and providing care for this patient excluding time spent in the performance of separately billed services or time spent by another provider/QHP. (2) Hypertension: History of Present Illness Primary Care Provider: Adria Ch DO Patient is a 64 year old M with a past medical history of LUNA, Insomnia, RAMIREZ with CPAP, dyslipidemia, CAD, HTN, Vitamin D deficiency presenting with headache. Patient reports having chronic headaches for ~2 years that he describes as "allergic type headaches" that are instigated by many different foods and medications; these triggers also cause insomnia. Headache worsened yesterday morning with his typical diet regimen and he came here for evaluation. Reportedly, he is highly anxious with everyday tasks, especially being here in the hospital; although, he feels comforted when talking to people. He states he is "supersensitive to medications", blood pressure meds have caused his sleep apnea, OTC supplements are taken to manage his "leaky gut" that was diagnosed by his family member. Denies fever, chills, weight loss, weakness,cognitive changes, SI/HI, hallucinations, vision/hearing changes, chest pain, SOB, swelling, difficulty breathing, urinary concerns, N/V/D, joint swelling/pain, ambulation difficulty, skin rashes, lesions, bleeding, bruising. In the emergency department, patient was hemodynamically stable with no evidence of infection or acute mental status concerns. Labs showing mild transaminitis with AST 90 and ALT 402 and a normal Alk Phos. Bili 1.2 and at baseline per outside record review. Urine negative for UTI. UDS negative. Clinically dry- low sodium and elevated BUN/Creat ratio. 1L NSS bolus given in the ED. Head CT with no acute intracranial findings. CT abdomen/pelvis showed No acute infectious or inflammatory findings are identified in the abdomen or pelvis; Moderate constipation; Advanced coronary artery atherosclerosis. Patient reports following Psych in [place] for anxiety management and prescribed clonazepam 4 times a day. Hyper focused on diet and supplements to manage a "leaky gut" that was self-diagnosed. History obtained primarily from the patient and via hospitalization record. Allergies Allergy/AdvReac Type Severity Reaction Status Date / Time No Known Allergies Allergy Unverified 12/08/24 15:50 Home Medications Medication Instructions Recorded Confirmed Type clonazepam 0.5 mg tablet 0.5 mg PO QID 12/08/24 12/08/24 History losartan 100 mg tablet 75 mg PO QAM 12/08/24 12/08/24 History metoprolol succinate 50 mg 37.5 mg PO QAM 12/08/24 12/08/24 History tablet,extended release 24 hr Past Med/Surg History Problem List (Updated 12/08/24 @ 17:59 by Roly Dumas, DO) Suicidal ideations (Acute) Acute hyponatremia (Acute) Abdominal pain (Acute) Hypertension Transaminitis (Acute) Statin declined CAD (coronary artery disease) Medical History Type 2 myocardial infarction Dyslipidemia Hypertensive urgency NSTEMI (non-ST elevated myocardial infarction) Elevated troponin Social History Smoking Status: Never smoker Second Hand Exposure: No; Do You Dip or Chew Tobacco: No; Hx Alcohol Use: Yes Alcohol type: beer Hx Substance Use: No Preferred Language: Israeli Communication Ability: Effective Family Educator Required: No Beliefs That Will Affect Care: None Current Living Situation: Alone Feels Safe at Home: Yes Assistive Devices: None Review of Systems Review of Systems: All systems reviewed & are unremarkable except as noted in HPI & below Physical Exam Physical Exam: VITALS: Reviewed. WEIGHT/BMI reviewed. GEN: Healthy appearing, well-developed, NAD. PSYCH: AOx3. Normal memory, mood, and affect. HEENT -Head: NC/AT; -Eyes: PERRL, EOMI. No discharge or redn ess; -Ears: External ears are normal. Normal TMs. -Nose: Normal nares. -Mouth and throat: MMM. Normal gums, muc ramirez, palate,. Good dentition. NECK: Supple, with no masses. CV: RRR, no m/r/g. LUNGS: CTAB, no w/r/c. ABD: Soft, NT/ND, NBS, no masses or organomegaly. : N/A SKIN: Warm, well perfused. No skin rashes or abnormal lesions. MSK: No deformities, Normal gait. EXT: No clubbing, cyanosis, or edema. NEURO: Ambulating with no limitations. Normal muscle strength and tone. No focal deficits. Results & Data Results & Data Vital Signs (Past 12 Hours) Vital Signs Temp Pulse Pulse Resp BP BP Pulse Ox 12/08/24 15:04 59 L 98 12/08/24 15:04 59 L 122/80 98 12/08/24 12:03 36.7 C 65 17 119/72 97 O2 Del Method 12/08/24 15:04 Room Air 12/08/24 15:04 Room Air 12/08/24 12:03 Room Air Laboratory Results Short CBC 12/08/24 Range/Units 12:36 WBC 6.46 (4.8-10.8) K/ul Hgb 15.1 (14.0-18.0) g/dl Hct 42.0 (42.0-52.0) % Plt Count 227 (130-400) K/uL BMP 12/08/24 12:36 Sodium 133 L Potassium 4.3 Chloride 102 Carbon Dioxide 26 BUN 32 H Creatinine 0.85 Glucose 84 Calcium 9.6 Liver Function 12/08/24 Range/Units 12:36 Total Bilirubin 1.2 H (0.2-1.0) mg/dl AST 90 H (13-39) U/L ALT 402 H (7-52) U/L Alkaline Phosphatase 82 (34-104) U/L Albumin 4.3 (3.4-5.0) gm/dl Urine 12/08/24 Range/Units 12:32 Urine Color Yellow Urine Appearance Clear (Clear) Urine pH 5.5 (4.5-7.5) Ur Specific [place] 1.016 (1.000-1.030) Urine Protein Negative (Negative) Urine Glucose (UA) Negative (Negative) Diagnostic Findings Head CT 12/08/24 12:21 CT SCAN OF THE BRAIN WITHOUT IV CONTRAST CLINICAL HISTORY: Headache. COMPARISON STUDY: None. TECHNIQUE: Unenhanced axial CT scan of the brain was performed from the vertex to the skull base. A dose lowering technique was utilized adhering to the principles of ALARA. CT DOSE: 625.8 mGy.cm FINDINGS: Brain parenchyma: No acute intracranial hemorrhage, midline shift or mass effect is present. Ortega-white matter differentiation is preserved. There are no extra- axial fluid collections. There are no findings to suggest acute dural sinus thrombosis or acute territorial infarct. Ventricles, sulci, cisterns: There is no hydrocephalus. The basal cisterns are patent. Calvarium: Unremarkable. Sinuses and mastoids: The visualized paranasal sinuses are clear. The mastoid air cells are well pneumatized. Orbits: The bony orbits are grossly intact. IMPRESSION: No acute intracranial findings. ACT 112: Negative or not required by law. Electronically signed by: Maged Rich M.D. 12/08/2024 1:09 PM Abdomen/Pelvis CT 12/08/24 14:29 CT SCAN OF THE ABDOMEN AND PELVIS WITH IV CONTRAST CLINICAL HISTORY: Nausea. Elevated hepatic transaminases. COMPARISON STUDY: No priors TECHNIQUE: Following the IV administration of 94 cc of Optiray 320, CT scan of the abdomen and pelvis is performed from the lung bases to the proximal femora. Images are reviewed in the axial, sagittal, and coronal planes. IV contrast was administered without complication. A dose lowering technique was utilized adhering to the principles of ALARA. CT DOSE: 651.45 mGy.cm FINDINGS: Lung bases: The heart is top normal in size and without pericardial effusion. The coronary arteries are densely calcified. The lung bases are clear. Liver: The contrast-enhanced liver is normal in size, contour, and attenuation. There is no intrahepatic biliary ductal dilatation. The hepatic veins and portal veins are patent. Gallbladder: Unremarkable. Spleen: Normal in size and attenuation. Pancreas: Unremarkable. Adrenal glands: Unremarkable. Kidneys: The contrast enhanced kidneys are normal in size and without hydronephrosis. The kidneys enhance symmetrically. A 1.5 cm cyst is noted on the left. Abdominal vasculature: The abdominal aorta is normal in course and caliber noting moderate to advanced atherosclerotic calcification. Bowel: There is moderate constipation. No bowel obstruction is seen. The append ix is not visualized. Peritoneum: There is no intraperitoneal free air or abdominal ascites. Lymphadenopathy: None. Pelvic viscera: The prostate gland is enlarged and heterogeneous. The bladder is distended but otherwise normal as imaged. Skeletal structures: No lytic or blastic lesions are seen. IMPRESSION: 1. No acute infectious or inflammatory findings are identified in the abdomen or pelvis. 2. Moderate constipation. 3. Advanced coronary artery atherosclerosis. 4. Additional findings as above. ACT 112: Negative or not required by law. Electronically signed by: Campbell Lombardo M.D. 12/08/2024 3:31 PM Supervising Physician Co-Signing Physician Notes Attending Addendum: Case reviewed with the advanced practitioner. I have personally performed a history and physical examination on the patient. I have reviewed the advanced practitioner's documentation on the date of service referenced in note, and I agree with, and take responsibility for the plan of care. please refer to her notes for full details patient seen and examined, records reviewed by myself as well on exam, patient seen resting in bed, not in distress, appears comfortable overall Reports intermittent generalized headache, typical of his migraine, progressing since yesterday Attributes to certain food items triggering his migraine attacks Denies abdominal pain, nausea vomiting, fevers or chills reports his anxiety has become very severe lately, with component of depression, but no suicidal ideations, which has limited his activities of daily living significantly. no other symptoms VS noted and reviewed oriented x , not in distress, speaks in sentences with no effort nor accessory muscle use normal rate, regular rhythm, no murmurs clear breath sounds bilaterally non distended, soft, nontender no bipedal edema, erythema, warmth no neuro deficits all labs, imaging noted and reviewed ASSESSMENT AND PLAN> Migraine headaches CT head: No acute process Progressive, often severe, Contributing to worsening anxiety/depression, limiting activities of daily living Tylenol, Toradol IV as needed Will consult neurology service for further recommendations Pile Trimmer consulted as patient reports numerous food items triggers his migraine headaches- he only consumes chicken, sweet potatoes and yogurt on a daily basis Mild transaminitis Unclear etiology Denies heavy alcohol use CT abdomen pelvis: Unrevealing Obtain liver ultrasound Hepatitis panel, iron studies possible supplements contributing? Follow liver panel Worsening depression, anxiety Denies suicidal ideations during exam Psychiatry service on board, plan to transfer to inpatient psych facility when medically stable other diagnoses and plan of care as per advanced practitioner's notes I spent a total of 45 minutes coordinating, documenting, and providing care for this patient, excluding time spent in the performance of separately billed services or time spent by another provider/QHP. Virgil Castro MD
[2024-12-08 17:19] LABS: Cholesterol 115.0 mg/dl (0-200); HDL Cholesterol 49.0 mg/dl; Iron 90.0 mcg/dl (35-175); Total Iron Binding Cap Calc 409.0 mcg/dl (250-450); Transferrin 292.0 mg/dl (200-360); Transferrin (FE) Percent Satur 22.0 % (20-50); Triglycerides 38.0 mg/dl (0-150)
[2024-12-08 17:39] LABS: Ferritin 130.0 ng/ml (8-388); Hemoglobin A1C 5.3 % (4.5-5.6)
[2024-12-08 18:03] LABS: Hep C Ab Rflx HepCQuant RNA Negative (Negative)
[2024-12-08 18:24] LABS: Lipase 24.0 U/L (11-82)
[2024-12-08] MEDS ORDERED: MAGNESIUM HYDROXIDE SUSP 30 ML UDC PO PRN (18:45)
[2024-12-08] MEDS ORDERED: POLYETHYLENE (MIRALAX) 17 GM PACK PO PRN (18:45)
[2024-12-08] MEDS ORDERED: ONDANSETRON INJ 2 MG/ML 2 ML VIAL IV PRN (18:45)
[2024-12-08] MEDS ORDERED: ALUMINUM/MAGNESIUM SUSP 30 ML UDC PO PRN (18:45)
--- NOTE | 2024-12-08 19:15 | Ultrasound Report ---
Clinical history: Elevated liver enzymes Technique: Sonography was performed of the right upper quadrant of the abdomen Findings: There is no sign of cirrhosis or significant fatty infiltration. No definite liver mass is seen There is some suspected gallbladder sludge. There are also suspected small gallbladder polyps. There is no evidence of cholelithiasis or cholecystitis. The gallbladder has a normal wall thickness and no adjacent fluid is seen. No definite sonographic Goode sign was detected. There is no intrahepatic or extrahepatic bile duct dilatation. The common bile duct measures 2 mm The right kidney measures 12.5 cm in length. There is no hydronephrosis. No definite renal calculus or mass is seen The visualized pancreas, aorta, and IVC appear unremarkable. No ascites is seen Impression: Gallbladder sludge and suspected small gallbladder polyps, without definite cholelithiasis or cholecystitis ACT 112: Positive. There are findings on this exam that require communication between the performing entity and the patient following Patient Test Result Information Act ([place] ACT 112) guidelines. Electronically signed by Mynor Ramirez 12-08-2024 7:15 PM
[2024-12-08] MEDS: SODIUM CHLORIDE 0.9% 500 ML IV SCH (19:27)
[2024-12-08] MEDS ORDERED: SOD PHOSPHATE/SOD BIPHOSPHATE ENEMA 132 ML BTL PR PRN (22:00)
[2024-12-08] MEDS: clonazePAM 0.5 MG TAB PO SCH (22:44)
--- NOTE | 2024-12-09 08:16 | Hospitalist Progress Note ---
Date of Service December 09, 2024 Assessment & Plan (1) Transaminitis: Plan: Mr. Carpio is a 64 year old M with a past medical history of LUNA, Insomnia, RAMIREZ with CPAP, dyslipidemia, CAD, HTN, Vitamin D deficiency presenting with headache and concerns for ability to eat. Patient's diet is now self restricted to sweet potatoes, chicken breast, and plain yogurt. He states that he follows a tool keeper who shares that he has a leaky gut,stating his gut membrane allows "undigested food particles into [his] blood stream." When discussing the possibility of DILI from supplements, he reports he cannot stop his current supplements as they are the only thing that help with his bloating. While exploring the bloating, he reports that doctors give him severe anxiety and it limits his ability to pursue further examination, noting that a colonoscopy or egd would not be in the realm of possibility at this time. Reassurance was provided to patient. Discussed plan for neurology, nutrition, and psych to evaluate patient. #Anxiety Highly anxious with everyday activities;follows OP Psych in [place] and prescribed Clonazepam QID Continue home clonazepam for now (UDS negative for benzos as metabolized differently than other benzos) Psych consult for additional recs and possible outpatient services -Plan for possible dischage to inpatient unit to help with severe anxiety -will appreciate pending recs #Transaminitis unknown etiology, suspect ?DILI iso supplement use On admission, AST 90; ALT 402, chronically elevated bili CT abdomen/pelvis showing No acute infectious or inflammatory findings are identified in the abdomen or pelvis; Moderate constipation; Advanced coronary artery atherosclerosis. Liver US with gallbladder polyps and sludge Salicylates negative, tylenol negative, UDS negative HBV/ HCV negative A1C 5.3%; iron studies wnl Given presence of gallbladder polyps (low suspicion contributing to particular lft pattern) will consult GI for further follow up recommendations or investigations -Reviewed GI recommendations: plan for annual US to monitor polyps LFTs will need to be monitored as op Encouraged patient to consider discontinuing supplements, this will need to be a continued topic to be addressed as an op and will require close lft monitoring as an op #Migraines CT head without acute findings Neurology recommends CTA head/neck, MRI brain, ordered will follow up #Hypertension: Continue home BP meds and trend #Asymptomatic bradycardia iso BB use, rates in mid50s reduce metoprolol dose to 25mg daily #Dyslipidemia: CT Abd/Pelvis showing advanced coronary artery atherosclerosis; not currently on statin therapy d/t intolerance with myalgias LDL 58 #RAMIREZ May use home CPAP #Constipation CT abd showing moderate constipation with a benign abdominal exam Miralax continued DVT Ppx: Teds Code status: Full PCP: Dr. Adria Ch Dispo: will place admit order, will need placement with inpatient unit r/QHP. (2) Hypertension: Admission and Anticipated Discharge Date Admission Date: December 08, 2024 Subjective NAEO Patient in bed, very anxious Patient reports not feeling happy that his "bloating" was not taken into consideration when discussing his supplement use and the possibility of it impacting his liver Patient shares his dietary habits and his concerns with new medications or medication adjustments Discussed lowering his metoprolol to 25mg daily given low hrs consistently. Patient verbalized agreement Patient reports severe anxiety that has limited his ability for follow up for many of his conditions Physical Exam Constitutional: very anxious, otherwise no distress Respiratory: normal respiratory effort, lungs clear to auscultation Cardiovascular: RRR, no murmur, no edema Gastrointestinal (Abdomen): normal bowel sounds, soft, nontender, no hepatosplenomegaly Results & Data Results & Data Vital Signs (Past 12 Hours) Vital Signs Temp Pulse Resp BP Pulse Ox O2 Del Method 12/09/24 07:50 36.8 C 56 L 18 127/78 99 Room Air 12/08/24 21:28 Room Air 12/08/24 21:28 36.5 C 55 L 18 97/60 L 97 Room Air Laboratory Results Short CBC 12/09/24 Range/Units 08:24 WBC 7.17 (4.8-10.8) K/ul Hgb 15.1 (14.0-18.0) g/dl Hct 42.0 (42.0-52.0) % Plt Count 214 (130-400) K/uL BMP 12/09/24 08:24 Sodium 134 L Potassium 4.1 Chloride 101 Carbon Dioxide 29 BUN 26 H Creatinine 0.71 Glucose 93 Calcium 9.3 Liver Function 12/09/24 Range/Units 08:24 Total Bilirubin 1.6 H (0.2-1.0) mg/dl AST 90 H (13-39) U/L ALT 364 H (7-52) U/L Alkaline Phosphatase 80 (34-104) U/L Albumin 4.3 (3.4-5.0) gm/dl Medications Administered Home Medications Medication Instructions Recorded Confirmed Last Taken clonazepam 0.5 mg tablet 0.5 mg PO QID 12/08/24 12/08/24 12/08/24 11:00 losartan 100 mg tablet 75 mg PO QAM 12/08/24 12/08/24 12/08/24 metoprolol succinate 50 mg 37.5 mg PO QAM 12/08/24 12/08/24 12/08/24 tablet,extended release 24 hr Active Medications Generic Name Dose Route Start Last Admin Trade Name Joeq PRN Reason Stop Dose Admin Clonazepam 0.5 mg 12/08/24 23:00 12/09/24 11:29 Clonazepam 0.5 Mg Tab PO 01/07/25 22:59 0.5 mg DAILY@0500,1100,1700,2300 MOHINDER Administration Losartan Potassium 75 mg 12/09/24 09:00 12/09/24 08:23 Losartan Potassium 25 Mg Tab PO 01/08/25 08:59 75 mg QAM MOHINDER Administration Metoprolol Succinate 25 mg 12/09/24 11:30 12/09/24 11:29 Metoprolol Succ 25mg Ext Rel Tab PO 01/08/25 11:29 25 mg QAM MOHINDER Administration
[2024-12-09] MEDS: METOPROLOL SUCC 25MG EXT REL TAB PO SCH ×2 (08:21→11:29)
[2024-12-09] MEDS: LOSARTAN POTASSIUM 25 MG TAB PO SCH (08:23)
[2024-12-09 08:37] LABS: Hematocrit (blood only) 42.0 % (42.0-52.0); Hemoglobin 15.1 g/dl (14.0-18.0); Mean Corpuscular Hemoglobin 32.3 pg (25.0-34.0); Mean Corpuscular Volume 89.9 fL (80.0-100.0); Platelet Count 214 K/uL (130-400); RDW Standard Deviation 40.8 fL (36.4-46.3); Red Blood Count 4.67 M/uL (4.70-6.10); White Blood Count 7.17 K/ul (4.8-10.8)
[2024-12-09 08:54] LABS: Alanine Aminotransferase 364.0 U/L (7-52); Albumin Globulin Ratio 1.8 (0.9-2); Alkaline Phosphatase 80.0 U/L (34-104); Anion Gap 4.0 (3-11); Bilirubin,Total 1.6 mg/dl (0.2-1.0); Blood Urea Nitrogen 26.0 mg/dl (6-23); Calcium 9.3 mg/dl (8.6-10.3); Carbon Dioxide 29.0 mmol/L (21-32); Chloride 101.0 mmol/L (98-107); Creatinine Clr Calc Pharmacy 100.0 ml/min; Globulin 2.4 gm/dl (2.5-4.0); Glucose 93.0 mg/dl (70-99(Fasting)); Potassium 4.1 mmol/L (3.5-5.1); Sodium 134.0 mmol/L (136-145); Total Protein 6.7 gm/dl (6.0-8.3)
--- NOTE | 2024-12-09 09:55 | Gastrointestinal Consultation ---
Date of Consultation December 09, 2024 Assessment & Plan (1) Transaminitis: With regards to his gallbladder polyps the only thing that would need to be done is annual ultrasound and even that may not need to be done. Gallbladder polyps as a rule do not lead to any issues. He has elevated liver enzymes but this is the only set we know that is elevated. Thus this can be followed as an outpatient. His only risk factor is his supplements and I have recommended to him that he stop his supplements. He will stop all but the one that he feels he "cannot live without". I think his anxiety has led to his GI symptoms and his problems are likely functional. I do think he needs an EGD and a colonoscopy as an outpatient and they can be done by his regular GI docs. He does not think he will be able to tolerate them. I agree psychiatry and neurology consultations are warranted. I do not plan further GI workup at this time. History of Present Illness Reason for Consultation: gall bladder polyps Attending Physician: Nisha Sands MD History of Present Illness 64 year old man admitted with "headaches". He tells me that ever since he was started on BP meds he has developed stomach issues. For that he takes supplements. He has a relative who is a "f[employer] certified powerplant mechanic" who has diagnosed him with a "leaky gut" and put him on several different GI supplement combinations. He has weaned himself down to one that he will not stop taking. He tells me that when he eats he gets "severely bloated" all the way down to his lower abdomen. He also will get headaches and severe anxiety when he eats so he says he is only eating chicken, sweet potatoes and a few other items. He has seen the doctors at [facility] who have ruled out celiac disease and told him he has a "bloating problem". He says he has too much anxiety so he doesn't think he would be able to tolerate EGD or a colonoscopy. On admit his transaminases were elevated with AST of 90 and ALT of 364 with bilirubin of 1.6. Ultrasound shows normal liver with gall bladder polyps and "sludge". He denies abdominal pain other than his bloating, he also denies nausea or vomiting. Allergies Allergy/AdvReac Type Severity Reaction Status Date / Time No Known Allergies Allergy Unverified 12/08/24 15:50 Home Medications Medication Instructions Recorded Confirmed Type clonazepam 0.5 mg tablet 0.5 mg PO QID 12/08/24 12/08/24 History losartan 100 mg tablet 75 mg PO QAM 12/08/24 12/08/24 History metoprolol succinate 50 mg 37.5 mg PO QAM 12/08/24 12/08/24 History tablet,extended release 24 hr Patient History Medical History Type 2 myocardial infarction Dyslipidemia Hypertensive urgency NSTEMI (non-ST elevated myocardial infarction) Elevated troponin Social History Smoking Status: Never smoker Second Hand Exposure: No; Do You Dip or Chew Tobacco: No; Hx Alcohol Use: Yes Alcohol type: beer Hx Substance Use: No Preferred Language: Finnish Communication Ability: Effective Zipper Slide Attacher Required: No Beliefs That Will Affect Care: None Current Living Situation: Alone Feels Safe at Home: Yes Assistive Devices: CPAP Review of Systems Review of Systems: All systems reviewed & are unremarkable except as noted in HPI & below Physical Exam Physical Exam: Anxious man in no physical distress Constitutional: WD/WN, vitals as above Neck: trachea midline, no thyromegaly Respiratory: normal respiratory effort, lungs clear to auscultation Cardiovascular: RRR, no murmur, no edema Gastrointestinal (Abdomen): normal bowel sounds, soft, nontender, no hepatosplenomegaly Results & Data Vital Signs (Past 12 Hours) Vital Signs Temp Pulse Resp BP Pulse Ox O2 Del Method 12/09/24 07:50 36.8 C 56 L 18 127/78 99 Room Air Laboratory Results 12/09/24 12/08/24 12/08/24 Range/Units 08:24 13:50 12:36 WBC 7.17 6.46 (4.8-10.8) K/ul RBC 4.67 L 4.69 L (4.70-6.10) M/uL Hgb 15.1 15.1 (14.0-18.0) g/dl Hct 42.0 42.0 (42.0-52.0) % MCV 89.9 89.6 (80.0-100.0) fL MCH 32.3 32.2 (25.0-34.0) pg MCHC 36.0 36.0 (32.0-36.0) g/dL RDW Std Deviation 40.8 39.8 (36.4-46.3) fL RDW Coeff of Trever 12.3 12.2 (11.5-14.5) % Plt Count 214 227 (130-400) K/uL MPV 10.0 10.3 (9.4-12.4) fL Immature Gran % (Auto) 0.2 % Neut % (Auto) 73.8 % Lymph % (Auto) 16.4 % Harris % (Auto) 7.3 % Eos % (Auto) 1.5 % Baso % (Auto) 0.8 % Neut # (Auto) 4.77 (1.40-6.50) K/uL Lymph # (Auto) 1.06 L (1.20-3.40) K/uL Harris # (Auto) 0.47 (0.11-0.59) K/uL Eos # (Auto) 0.10 (0.00-0.50) K/uL Baso # (Auto) 0.05 (0.00-0.20) K/uL Immature Gran # (Auto) 0.01 (0.01-0.20) K/uL Sodium 134 L 133 L (136-145) mmol/L Potassium 4.1 4.3 (3.5-5.1) mmol/L Chloride 101 102 (98-107) mmol/L Carbon Dioxide 29 26 (21-32) mmol/L Anion Gap 4 5 (3-11) BUN 26 H 32 H (6-23) mg/dl Creatinine 0.71 0.85 (0.6-1.4) mg/dl Est Cr Clr Drug Dosing 100.0 82.1 ml/min eGFR 102.45 97.03 BUN/Creatinine Ratio 36.6 H 37.6 H (10-20) Glucose 93 84 (70-99(Fasting)) mg/dl Estimat Average Glucose 105 mg/dl Hemoglobin A1c 5.3 (4.5-5.6) % Calcium 9.3 9.6 (8.6-10.3) mg/dl Iron 90 (35-175) mcg/dl TIBC 409 (250-450) mcg/dl Transferrin 292 (200-360) mg/dl Transferrin % Sat 22 (20-50) % Ferritin 130.0 (8-388) ng/ml Total Bilirubin 1.6 H 1.2 H (0.2-1.0) mg/dl AST 90 H 90 H (13-39) U/L ALT 364 H 402 H (7-52) U/L Alkaline Phosphatase 80 82 (34-104) U/L Total Protein 6.7 7.4 (6.0-8.3) gm/dl Albumin 4.3 4.3 (3.4-5.0) gm/dl Globulin 2.4 L 3.1 (2.5-4.0) gm/dl Albumin/Globulin Ratio 1.8 1.4 (0.9-2) Triglycerides 38 (0-150) mg/dl Cholesterol 115 (0-200) mg/dl LDL Cholesterol, Calc 58 mg/dl VLDL Cholesterol, Calc 8 (0-30) mg/dl HDL Cholesterol 49 mg/dl Cholesterol/HDL Ratio 2.3 (0-5) Lipase 24 (11-82) U/L TSH 0.933 (0.300-4.500) uIu/ml Urine Color Urine Appearance (Clear) Urine pH (4.5-7.5) Ur Specific [place] (1.000-1.030) Urine Protein (Negative) Urine Glucose (UA) (Negative) Urine Ketones (Negative) Urine Blood (Negative) Urine Nitrite (Negative) Urine Bilirubin (Negative) Urine Urobilinogen (Negative) Ur Leukocyte Esterase (Negative) Urine Comment Salicylates < 3.0 L (3.0-30) mg/dl Urine Opiates Screen (Neg) Ur Methadone, Qual (Neg) Urine Fentanyl Screen (Neg) Acetaminophen < 3 L (10-30) ug/ml Urine Barbiturates (Neg) Ur Phencyclidine (PCP) (Neg) U Amphetamin/Meth Scrn (Neg) MDMA (Ecstasy) Screen (Neg) U Benzodiazepines Scrn (Neg) Ur Cocaine Metabolite (Neg) U Marijuana (THC) Screen (Neg) Ethyl Alcohol mg/dL < 10.0 (<10.0) mg/dl Hep Bs Antibody Non-Immune Hep Bs Antibody, Quant < 3.00 (>or=10mIU/mL Immune) mIU/mL Hepatitis C Antibody Negative (Negative) 12/08/24 Range/Units 12:32 WBC (4.8-10.8) K/ul RBC (4.70-6.10) M/uL Hgb (14.0-18.0) g/dl Hct (42.0-52.0) % MCV (80.0-100.0) fL MCH (25.0-34.0) pg MCHC (32.0-36.0) g/dL RDW Std Deviation (36.4-46.3) fL RDW Coeff of Trever (11.5-14.5) % Plt Count (130-400) K/uL MPV (9.4-12.4) fL Immature Gran % (Auto) % Neut % (Auto) % Lymph % (Auto) % Harris % (Auto) % Eos % (Auto) % Baso % (Auto) % Neut # (Auto) (1.40-6.50) K/uL Lymph # (Auto) (1.20-3.40) K/uL Harris # (Auto) (0.11-0.59) K/uL Eos # (Auto) (0.00-0.50) K/uL Baso # (Auto) (0.00-0.20) K/uL Immature Gran # (Auto) (0.01-0.20) K/uL Sodium (136-145) mmol/L Potassium (3.5-5.1) mmol/L Chloride (98-107) mmol/L Carbon Dioxide (21-32) mmol/L Anion Gap (3-11) BUN (6-23) mg/dl Creatinine (0.6-1.4) mg/dl Est Cr Clr Drug Dosing ml/min eGFR BUN/Creatinine Ratio (10-20) Glucose (70-99(Fasting)) mg/dl Estimat Average Glucose mg/dl Hemoglobin A1c (4.5-5.6) % Calcium (8.6-10.3) mg/dl Iron (35-175) mcg/dl TIBC (250-450) mcg/dl Transferrin (200-360) mg/dl Transferrin % Sat (20-50) % Ferritin (8-388) ng/ml Total Bilirubin (0.2-1.0) mg/dl AST (13-39) U/L ALT (7-52) U/L Alkaline Phosphatase (34-104) U/L Total Protein (6.0-8.3) gm/dl Albumin (3.4-5.0) gm/dl Globulin (2.5-4.0) gm/dl Albumin/Globulin Ratio (0.9-2) Triglycerides (0-150) mg/dl Cholesterol (0-200) mg/dl LDL Cholesterol, Calc mg/dl VLDL Cholesterol, Calc (0-30) mg/dl HDL Cholesterol mg/dl Cholesterol/HDL Ratio (0-5) Lipase (11-82) U/L TSH (0.300-4.500) uIu/ml Urine Color Yellow Urine Appearance Clear (Clear) Urine pH 5.5 (4.5-7.5) Ur Specific [place] 1.016 (1.000-1.030) Urine Protein Negative (Negative) Urine Glucose (UA) Negative (Negative) Urine Ketones Negative (Negative) Urine Blood Negative (Negative) Urine Nitrite Negative (Negative) Urine Bilirubin Negative (Negative) Urine Urobilinogen Negative (Negative) Ur Leukocyte Esterase Negative (Negative) Urine Comment Salicylates (3.0-30) mg/dl Urine Opiates Screen Neg (Neg) Ur Methadone, Qual Neg (Neg) Urine Fentanyl Screen Neg (Neg) Acetaminophen (10-30) ug/ml Urine Barbiturates Neg (Neg) Ur Phencyclidine (PCP) Neg (Neg) U Amphetamin/Meth Scrn Neg (Neg) MDMA (Ecstasy) Screen Neg (Neg) U Benzodiazepines Scrn Neg (Neg) Ur Cocaine Metabolite Neg (Neg) U Marijuana (THC) Screen Neg (Neg) Ethyl Alcohol mg/dL (<10.0) mg/dl Hep Bs Antibody Hep Bs Antibody, Quant (>or=10mIU/mL Immune) mIU/mL Hepatitis C Antibody (Negative) Diagnostic Findings Head CT 12/08/24 12:21 CT SCAN OF THE BRAIN WITHOUT IV CONTRAST CLINICAL HISTORY: Headache. COMPARISON STUDY: None. TECHNIQUE: Unenhanced axial CT scan of the brain was performed from the vertex to the skull base. A dose lowering technique was utilized adhering to the principles of ALARA. CT DOSE: 625.8 mGy.cm FINDINGS: Brain parenchyma: No acute intracranial hemorrhage, midline shift or mass effect is present. Ortega-white matter differentiation is preserved. There are no extra- axial fluid collections. There are no findings to suggest acute dural sinus thrombosis or acute territorial infarct. Ventricles, sulci, cisterns: There is no hydrocephalus. The basal cisterns are patent. Calvarium: Unremarkable. Sinuses and mastoids: The visualized paranasal sinuses are clear. The mastoid air cells are well pneumatized. Orbits: The bony orbits are grossly intact. IMPRESSION: No acute intracranial findings. ACT 112: Negative or not required by law. Electronically signed by: Maged Rich M.D. 12/08/2024 1:09 PM Abdomen/Pelvis CT 12/08/24 14:29 CT SCAN OF THE ABDOMEN AND PELVIS WITH IV CONTRAST CLINICAL HISTORY: Nausea. Elevated hepatic transaminases. COMPARISON STUDY: No priors TECHNIQUE: Following the IV administration of 94 cc of Optiray 320, CT scan of the abdomen and pelvis is performed from the lung bases to the proximal femora. Images are reviewed in the axial, sagittal, and coronal planes. IV contrast was administered without complication. A dose lowering technique was utilized adhering to the principles of ALARA. CT DOSE: 651.45 mGy.cm FINDINGS: Lung bases: The heart is top normal in size and without pericardial effusion. The coronary arteries are densely calcified. The lung bases are clear. Liver: The contrast-enhanced liver is normal in size, contour, and attenuation. There is no intrahepatic biliary ductal dilatation. The hepatic veins and portal veins are patent. Gallbladder: Unremarkable. Spleen: Normal in size and attenuation. Pancreas: Unremarkable. Adrenal glands: Unremarkable. Kidneys: The contrast enhanced kidneys are normal in size and without hydronephrosis. The kidneys enhance symmetrically. A 1.5 cm cyst is noted on the left. Abdominal vasculature: The abdominal aorta is normal in course and caliber noting moderate to advanced atherosclerotic calcification. Bowel: There is moderate constipation. No bowel obstruction is seen. The appendix is not visualized. Peritoneum: There is no intraperitoneal free air or abdominal ascites. Lymphadenopathy: None. Pelvic viscera: The prostate gland is enlarged and heterogeneous. The bladder is distended but otherwise normal as imaged. Skeletal structures: No lytic or blastic lesions are seen. IMPRESSION: 1. No acute infectious or inflammatory findings are identified in the abdomen or pelvis. 2. Moderate constipation. 3. Advanced coronary artery atherosclerosis. 4. Additional findings as above. ACT 112: Negative or not required by law. Electronically signed by: Campbell Lombardo M.D. 12/08/2024 3:31 PM Liver Ultrasound 12/08/24 16:56 Clinical history: Elevated liver enzymes Technique: Sonography was performed of the right upper quadrant of the abdomen Findings: There is no sign of cirrhosis or significant fatty infiltration. No definite liver mass is seen There is some suspected gallbladder sludge. There are also suspected small gallbladder polyps. There is no evidence of cholelithiasis or cholecystitis. The gallbladder has a normal wall thickness and no adjacent fluid is seen. No definite sonographic Goode sign was detected. There is no intrahepatic or extrahepatic bile duct dilatation. The common bile duct measures 2 mm The right kidney measures 12.5 cm in length. There is no hydronephrosis. No definite renal calculus or mass is seen The visualized pancreas, aorta, and IVC appear unremarkable. No ascites is seen Impression: Gallbladder sludge and suspected small gallbladder polyps, without definite cholelithiasis or cholecystitis ACT 112: Positive. There are findings on this exam that require communication between the performing entity and the patient following Patient Test Result Information Act ([place] ACT 112) guidelines. Electronically signed by Mynor Ramirez 12-08-2024 7:15 PM
--- NOTE | 2024-12-09 12:47 | Neurology Consultation ---
Date of Consultation December 09, 2024 Assessment & Plan (1) Headache: Recommend continued workup re: elevated LFTs Recommend obtain serum vitamin A level Recommend MRI brain with and without contrast Recommend CTA head & neck Recommend Psych consultation during this admission Continue to monitor for headache Continue frequent neurological assessments Obtain stat CT brain without contrast for any acute neurological decline Continue to monitor/control blood pressure & blood glucose Continue to monitor telemetry closely Continue to monitor renal and hepatic function, keep euvolemic Ok from neurology perspective for VTE prophylaxis PT/OT/SLT to eval and treat Recommend continue CPAP QHS Telehealth Consultation Telehealth Information Telehealth Information: I performed this visit using a real-time telehealth connection between my location and the patients location ([facility]). After connecting through interactive tele-video, patient was identified by name and date of and/or wristband check.Patient (or authorized healthcare food service sales representatives) was informed that this was a telemedicine visit and it was being conducted confidentially over secure lines. My office door was closed and no one else was present in the room with me.Patient (or authorized healthcare food service sales representatives) provided consent to proceed with the visit, expressed an understanding of privacy and security of the telemedicine visit, and gave permission to have a hospital food service sales representatives in the room in order to assist with the visit and to conduct portions of the visit, as needed. I informed the patient (or authorized healthcare food service sales representatives) that I reviewed their record and presented the opportunity for them to ask any questions regarding the visit today. The patient agreed to participate. History of Present Illness Reason for Consultation: Headache Requesting Physician: Dr Sands Attending Physician: Nisha Sands MD History of Present Illness 64yo male with past medical hx of RAMIREZ, HTN, CAD, dyslipidemia presented with headache. Reports chronic headache for approximately two years. He believes foods are his triggers for headache. He believes he overly is sensitive to medications and believes that his blood pressure medications caused his RAMIREZ. He notably takes OTC supplements. He was noted to have elevated liver enzymes for which further workup is ongoing. He has undergone imaging including CT brain without contrast, personally reviewed, revealing no overt evidence of hemorrhage or acute intracranial pathology. I have performed televideo consultation. He is alert & oriented; able to answer all questions appropriately, name objects on televideo monitor, repeat phrases and perform complex/embedded commands without deficit. Neurological exam is non lateralizing/nonfocal in terms of motor strength and coordination. He reports [facility] comfort station supervisor had just seen him prior to televideo consultation and believes his elevated LFTs are due to vitamin A toxicity from eating a lot of sweet potatoes. Patient appears fixated on me prescribing him a medication to relieve headaches caused by food. I have explained my recommendations to undergo MRI brain with and without contrast as well as CTA head & neck now during hospitalization for which he is agreeable. He currently denies headache. He appears in no apparent distress or discomfort. Allergies Allergy/AdvReac Type Severity Reaction Status Date / Time No Known Allergies Allergy Unverified 12/08/24 15:50 Home Medications Medication Instructions Recorded Confirmed Type clonazepam 0.5 mg tablet 0.5 mg PO QID 12/08/24 12/08/24 History losartan 100 mg tablet 75 mg PO QAM 12/08/24 12/08/24 History metoprolol succinate 50 mg 37.5 mg PO QAM 12/08/24 12/08/24 History tablet,extended release 24 hr Patient History Medical History Type 2 myocardial infarction Dyslipidemia Hypertensive urgency NSTEMI (non-ST elevated myocardial infarction) Elevated troponin Social History Smoking Status: Never smoker Second Hand Exposure: No; Do You Dip or Chew Tobacco: No; Hx Alcohol Use: Yes Alcohol type: beer Hx Substance Use: No Preferred Language: Andorran Communication Ability: Effective Petroleum Transport Driver Required: No Beliefs That Will Affect Care: None Current Living Situation: Alone Feels Safe at Home: Yes Assistive Devices: CPAP Physical Exam Neurological Examination: Mental Status: Awake and alert. Oriented to person, place, and time. Fluency naming repetition and comprehension appear grossly intact. Affect remains appropriate. CN testing: I: Deferred II: Reports no changes in visual acuity III/IV/: No evidence of gaze preference, hippus, nystagmus or roving eye movements V: Facial sensation reportedly grossly intact to light touch bilaterally VII: Facial movements appear without evidence of asymmetry VIII: Hearing appears grossly intact to loud voice bilaterally IX/X: Palate is unable to be accurately visualized XI: Shoulder shrug appears symmetric/ grossly intact bilaterally There is no overt evidence of nuchal rigidity, negative Kernigs/Brudzinski signs XII: Tongue protrudes midline without evidence of biting Motor exam: Strength appears grossly intact in all extremities Tone: Unable to accurately assess via telemedicine Sensory: Sensation is reportedly grossly intact throughout Coordination: No apparent evidence of dysmetria or dysdiadochokinesia Reflexes: Unable to accurately assess via telemedicine Gait: Deferred Results & Data Vital Signs (Past 12 Hours) Vital Signs Temp Pulse Resp BP Pulse Ox O2 Del Method 12/09/24 07:50 36.8 C 56 L 18 127/78 99 Room Air Laboratory Results Abnormal lab results 12/08/24 12/09/24 Range/Units 12:36 08:24 RBC 4.69 L 4.67 L (4.70-6.10) M/uL Lymph # (Auto) 1.06 L (1.20-3.40) K/uL Sodium 133 L 134 L (136-145) mmol/L BUN 32 H 26 H (6-23) mg/dl BUN/Creatinine Ratio 37.6 H 36.6 H (10-20) Total Bilirubin 1.2 H 1.6 H (0.2-1.0) mg/dl AST 90 H 90 H (13-39) U/L ALT 402 H 364 H (7-52) U/L Globulin 2.4 L (2.5-4.0) gm/dl Salicylates < 3.0 L (3.0-30) mg/dl Acetaminophen < 3 L (10-30) ug/ml Diagnostic Findings Head CT 12/08/24 12:21 CT SCAN OF THE BRAIN WITHOUT IV CONTRAST CLINICAL HISTORY: Headache. COMPARISON STUDY: None. TECHNIQUE: Unenhanced axial CT scan of the brain was performed from the vertex to the skull base. A dose lowering technique was utilized adhering to the principles of ALARA. CT DOSE: 625.8 mGy.cm FINDINGS: Brain parenchyma: No acute intracranial hemorrhage, midline shift or mass effect is present. Ortega-white matter differentiation is preserved. There are no extra- axial fluid collections. There are no findings to suggest acute dural sinus thrombosis or acute territorial infarct. Ventricles, sulci, cisterns: There is no hydrocephalus. The basal cisterns are patent. Calvarium: Unremarkable. Sinuses and mastoids: The visualized paranasal sinuses are clear. The mastoid air cells are well pneumatized. Orbits: The bony orbits are grossly intact. IMPRESSION: No acute intracranial findings. ACT 112: Negative or not required by law. Electronically signed by: Maged Rich M.D. 12/08/2024 1:09 PM Abdomen/Pelvis CT 12/08/24 14:29 CT SCAN OF THE ABDOMEN AND PELVIS WITH IV CONTRAST CLINICAL HISTORY: Nausea. Elevated hepatic transaminases. COMPARISON STUDY: No priors TECHNIQUE: Following the IV administration of 94 cc of Optiray 320, CT scan of the abdomen and pelvis is performed from the lung bases to the proximal femora. Images are reviewed in the axial, sagittal, and coronal planes. IV contrast was administered without complication. A dose lowering technique was utilized adhering to the principles of ALARA. CT DOSE: 651.45 mGy.cm FINDINGS: Lung bases: The heart is top normal in size and without pericardial effusion. The coronary arteries are densely calcified. The lung bases are clear. Liver: The contrast-enhanced liver is normal in size, contour, and attenuation. There is no intrahepatic biliary ductal dilatation. The hepatic veins and portal veins are patent. Gallbladder: Unremarkable. Spleen: Normal in size and attenuation. Pancreas: Unremarkable. Adrenal glands: Unremarkable. Kidneys: The contrast enhanced kidneys are normal in size and without hydronephrosis. The kidneys enhance symmetrically. A 1.5 cm cyst is noted on the left. Abdominal vasculature: The abdominal aorta is normal in course and caliber noting moderate to advanced atherosclerotic calcification. Bowel: There is moderate constipation. No bowel obstruction is seen. The appendix is not visualized. Peritoneum: There is no intraperitoneal free air or abdominal ascites. Lymphadenopathy: None. Pelvic viscera: The prostate gland is enlarged and heterogeneous. The bladder is distended but otherwise normal as imaged. Skeletal structures: No lytic or blastic lesions are seen. IMPRESSION: 1. No acute infectious or inflammatory findings are identified in the abdomen or pelvis. 2. Moderate constipation. 3. Advanced coronary artery atherosclerosis. 4. Additional findings as above. ACT 112: Negative or not required by law. Electronically signed by: Campbell Lombardo M.D. 12/08/2024 3:31 PM Liver Ultrasound 12/08/24 16:56 Clinical history: Elevated liver enzymes Technique: Sonography was performed of the right upper quadrant of the abdomen Findings: There is no sign of cirrhosis or significant fatty infiltration. No definite liver mass is seen There is some suspected gallbladder sludge. There are also suspected small gallbladder polyps. There is no evidence of cholelithiasis or cholecystitis. The gallbladder has a normal wall thickness and no adjacent fluid is seen. No definite sonographic Goode sign was detected. There is no intrahepatic or extrahepatic bile duct dilatation. The common bile duct measures 2 mm The right kidney measures 12.5 cm in length. There is no hydronephrosis. No definite renal calculus or mass is seen The visualized pancreas, aorta, and IVC appear unremarkable. No ascites is seen Impression: Gallbladder sludge and suspected small gallbladder polyps, without definite cholelithiasis or cholecystitis ACT 112: Positive. There are findings on this exam that require communication between the performing entity and the patient following Patient Test Result Information Act ([place] ACT 112) guidelines. Electronically signed by Mynor Ramirez 12-08-2024 7:15 PM Medications Administered Home Medications Medication Instructions Recorded Confirmed Last Taken clonazepam 0.5 mg tablet 0.5 mg PO QID 12/08/24 12/08/24 12/08/24 11:00 losartan 100 mg tablet 75 mg PO QAM 12/08/24 12/08/24 12/08/24 metoprolol succinate 50 mg 37.5 mg PO QAM 12/08/24 12/08/24 12/08/24 tablet,extended release 24 hr Active Medications Generic Name Dose Route Start Last Admin Trade Name Freq PRN Reason Stop Dose Admin Clonazepam 0.5 mg 12/08/24 23:00 12/09/24 11:29 Clonazepam 0.5 Mg Tab PO 01/07/25 22:59 0.5 mg DAILY@0500,1100,1700,2300 MOHINDER Administration Losartan Potassium 75 mg 12/09/24 09:00 12/09/24 08:23 Losartan Potassium 25 Mg Tab PO 01/08/25 08:59 75 mg QAM MOHINDER Administration Metoprolol Succinate 25 mg 12/09/24 11:30 12/09/24 11:29 Metoprolol Succ 25mg Ext Rel Tab PO 01/08/25 11:29 25 mg QAM MOHINDER Administration
[2024-12-09] MEDS: OPTIRAY 320 125ml IV ONE (13:48)
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
--- NOTE | 2024-12-09 14:12 | CT Scan Report ---
CT angiogram of the neck CT angiogram of the brain with contrast Provided History: Headache Comparison: None Technique: HEAD and NECK CTA: During rapid bolus intravenous injection of nonionic contrast material, axial images were obtained using thin collimation multidetector helical technique from the base of the neck through the of vertex of the head. This CT angiogram data was reconstructed at thin intervals with mild overlap. 3D reconstructions were obtained. The axial source images, multiplanar reformations, 3D reconstructions in both maximum intensity projection display and volume rendered models were reviewed. Dose reduction techniques were achieved by using automatic exposure control and/or adjustment of mA and/or kV according to patient size and/or use of iterative reconstruction technique. Findings: Head CTA demonstrates no aneurysm or stenosis of the major intracranial arteries. Neck CTA demonstrates no stenosis of the major cervical arteries. The origins of the great vessels from the aortic arch are patent. No mass is noted within the visualized portions of the cervical soft tissues or lung apices. Impression: 1. Head CTA demonstrates no aneurysm or stenosis of the major intracranial arteries, 2. Neck CTA demonstrates no stenosis of the major cervical arteries. Electronically signed by Chidi Rose 12-09-2024 2:12 PM
--- NOTE | 2024-12-09 14:43 | Magnetic Resonance Report ---
MRI of the brain performed without IV contrast History: Headache Comparison: None Technique: Sagittal T1-weighted and axial T2-weighted, T2/FLAIR and diffusion-weighted with ADC map images of the brain were obtained without IV contrast. Findings: No evidence for intracranial mass lesion, mass-effect, midline shift, or abnormal extra-axial fluid collection. The ventricles and sulci are within normal limits for age. No Chiari malformation. The sella is unremarkable. On T2/FLAIR there are mild scattered high signal intensity foci throughout the might matter suggesting chronic small vessel ischemic disease. No abnormally reduced diffusion or evidence for acute infarct. Normal intravascular flow voids. Impression: Normal brain MRI. Mild changes of chronic small vessel ischemic disease. Electronically signed by Chidi Rose 12-09-2024 2:43 PM
[2024-12-10] MEDS: clonazePAM 1 MG TAB PO SCH (06:02)
--- NOTE | 2024-12-10 07:12 | Hospitalist Progress Note ---
Date of Service December 10, 2024 Assessment & Plan (1) Transaminitis: Plan: Mr. Carpio is a 64 year old M with a past medical history of LUNA, Insomnia, RAMIREZ with CPAP, dyslipidemia, CAD s/p stent, HTN, Vitamin D deficiency presenting with headache and concerns for ability to eat. Patient's diet is now self restricted to sweet potatoes, chicken breast, and plain yogurt. He states that he follows a organization development consultant who shares that he has a leaky gut,stating his gut me mbrane allows "undigested food particles into [his] blood stream." When discussing the possibility of DILI from supplements, he reports he cannot stop his current supplements as they are the only thing that help with his bloating. While exploring the bloating, he reports that doctors give him severe anxiety and it limits his ability to pursue further examination, noting that a colonoscopy or egd would not be in the realm of possibility at this time. Reassurance was provided to patient. Neurology evaluated patient reporting that there is concern for possible vitamin A toxicity or other nutritional component contributing to headaches and that medications may not help this. Plant Protection Superintendent is concerned given patient's predominate diet of sweet potatoes he is exhibiting vitamin A toxicity marked by headaches, liver damage, abdominal discomfort. When discussed with patient, he states he is unsure he can make a dietary change as everything else out side of his current diet, even a small bite of salad, gives him a severe headache. A vitamin A level was attempted to be drawn however, patient was not fasting by time of draw as he takes his medications with yogurt. On 12/10, 65 minutes was spent at bedside. It was explained that his heart rate is persistently low in the high 40s, low 50s. I informed him of the hold parameters and the need to perhaps consider other medications if needed--he notes that he feels the metoprolol helps with his anxiety as it is a "beta dianne" however, it was explained that this med predominately acts on heart muscle and perhaps he was suggesting propranolol as this would be more efficacious. Patient is extremely concern for withdrawal. The current plan is to transition to propranolol with a hold parameter of 55. This was explained to patient and baseline ekg will be obtained. As of today, metoprolol was held. Patient is sure his heart rate was reduced due to the change of klonipin from qid to bid. Again, it was explained that his trends demonstrate otherwise, however, patient very fixated on this change and tearful at times during exchange. Patient also fairly normotensive with episodes of hypotension. It is suspected with his diet changes that his losartan requires adjustment and hold parameters at 115 SBP--this could be contributing to his headaches at times if he is experiencing episodic hypotension. As far as liver enzymes, they remained unchanged. It is unclear how long they have been at this level. Dietary changes were recommended. Discontinuation of supplements were encouraged. Patient declined. Vitamin A level and other vitamin levels to be sent, but will likely not return prior to dispo. This can been followed as an outpatient At this time, patient's current symptoms are predominately driven by anxiety. Psych liason is working for dispo to [place] [facility] Patient medically clear for dispo as soon as inpatient unit available. #Anxiety Highly anxious with everyday activities;follows OP Psych in [place] and prescribed Clonazepam QID Continue home clonazepam for now (UDS negative for benzos as metabolized differently than other benzos) Psych consult for additional recs and possible outpatient services -Plan for possible discharge to inpatient unit to help with severe anxiety -will appreciate pending recs -Reviewed recs: start Effexor 37.5 mg daily Initially trialed 1mg klonipin bid, however, worsened anxiety given too many changes, therefore will resume 0.5mg qid dosing, discussed with psych liaison Will replace metoprolol with propranolol with strict hold parameters of HR <55; discussed in depth with patient #Transaminitis unknown etiology, suspect ?DILI iso supplement use On admission, AST 90; ALT 402, chronically elevated bili CT abdomen/pelvis showing No acute infectious or inflammatory findings are identified in the abdomen or pelvis; Moderate constipation; Advanced coronary artery atherosclerosis. Liver US with gallbladder polyps and sludge Salicylates negative, tylenol negative, UDS negative HBV/ HCV negative A1C 5.3%; iron studies wnl Given presence of gallbladder polyps (low suspicion contributing to particular lft pattern) will consult GI for further follow up recommendations or investigations -Reviewed GI recommendations: plan for annual US to monitor polyps LFTs will need to be monitored as op Encouraged patient to consider discontinuing supplements, this will need to be a continued topic to be addressed as an op and will require close lft monitoring as an op #Migraines CT head without acute findings Neurology recommends CTA head/neck, MRI brain, all without acute abnormalities #Relative hypotension #Hypertension: Continue home BP meds and trend reduced losartan to 50mg with SBP hold <115 #Asymptomatic bradycardia iso BB use, rates in mid50s discontinued Metoprolol baseline ekg #Dyslipidemia: CT Abd/Pelvis showing advanced coronary artery atherosclerosis; not currently on statin therapy d/t intolerance with myalgias LDL 58 #RAMIREZ May use home CPAP #Constipation CT abd showing moderate constipation with a benign abdominal exam Miralax continued DVT Ppx: Teds Code status: Full PCP: Dr. Adria Ch Dispo: pending dispo to Analy I spent a total of 85 minutes coordinating, documenting, and providing care for this patient excluding time spent in the performance of separately billed services. . (2) Hypertension: Admission and Anticipated Discharge Date Admission Date: December 08, 2024 Subjective Extensive bedside conversations with patient who reports severe anxiety over medication changes he does not agree with care plan and feels no one is hearing him. Discussed rivas ges in depth and alluded to prior conversations--explored what patient would view as ideal treatment as his understanding of current medications He states that he understands, still demonstrating reluctance, however, eager to go to inpatient unit and reports he will "give our plan a try" in reference to medical plan and psych plan Patient does report he is not sure he can make a dietary change nor can he stop his supplements, he verbalized understanding that these things will now be followed as an outpatient discussed hold parameters of his BB and discussed new hold parameters for his losartan, again initially apprehensive but agreeable to hold parameters and dose reductions Physical Exam Respiratory: normal respiratory effort, lungs clear to auscultation Cardiovascular: RRR, no murmur, no edema Gastrointestinal (Abdomen): normal bowel sounds, soft, nontender, no hepatosplenomegaly Results & Data Results & Data Vital Signs (Past 12 Hours) Vital Signs Temp Pulse Resp BP BP Pulse Ox O2 Del Method 12/09/24 20:45 36.4 C L 53 L 16 82/47 L 98/64 L 97 Room Air 12/09/24 20:00 Room Air Laboratory Results Short CBC 12/10/24 Range/Units 07:08 WBC 5.91 (4.8-10.8) K/ul Hgb 14.2 (14.0-18.0) g/dl Hct 41.4 L (42.0-52.0) % Plt Count 197 (130-400) K/uL BMP 12/10/24 07:08 Sodium 134 L Potassium 4.1 Chloride 101 Carbon Dioxide 29 BUN 25 H Creatinine 0.75 Glucose 99 Calcium 9.1 Liver Function 12/10/24 Range/Units 07:08 Total Bilirubin 1.2 H (0.2-1.0) mg/dl AST 97 H (13-39) U/L ALT 351 H (7-52) U/L Alkaline Phosphatase 75 (34-104) U/L Albumin 4.0 (3.4-5.0) gm/dl Medications Administered Home Medications Medication Instructions Recorded Confirmed Last Taken clonazepam 0.5 mg tablet 0.5 mg PO QID 12/08/24 12/08/24 12/08/24 11:00 losartan 100 mg tablet 75 mg PO [facility] 12/08/24 12/08/24 12/08/24 metoprolol succinate 50 mg 37.5 mg PO [facility] 12/08/24 12/08/24 12/08/24 tablet,extended release 24 hr
[2024-12-10 07:31] LABS: Hematocrit (blood only) 41.4 % (42.0-52.0); Hemoglobin 14.2 g/dl (14.0-18.0); Mean Corpuscular Hemoglobin 31.1 pg (25.0-34.0); Mean Corpuscular Volume 90.6 fL (80.0-100.0); Platelet Count 197 K/uL (130-400); RDW Standard Deviation 41.3 fL (36.4-46.3); Red Blood Count 4.57 M/uL (4.70-6.10); White Blood Count 5.91 K/ul (4.8-10.8)
[2024-12-10 07:45] LABS: Alanine Aminotransferase 351.0 U/L (7-52); Albumin Globulin Ratio 1.7 (0.9-2); Alkaline Phosphatase 75.0 U/L (34-104); Anion Gap 4.0 (3-11); Bilirubin,Total 1.2 mg/dl (0.2-1.0); Blood Urea Nitrogen 25.0 mg/dl (6-23); Calcium 9.1 mg/dl (8.6-10.3); Carbon Dioxide 29.0 mmol/L (21-32); Chloride 101.0 mmol/L (98-107); Creatinine Clr Calc Pharmacy 94.6 ml/min; Globulin 2.3 gm/dl (2.5-4.0); Glucose 99.0 mg/dl (70-99(Fasting)); Magnesium 2.4 mg/dl (1.7-2.4); Potassium 4.1 mmol/L (3.5-5.1); Sodium 134.0 mmol/L (136-145); Total Protein 6.3 gm/dl (6.0-8.3)
[2024-12-10 08:13] LABS: Folate (Folic Acid),Ser orPlas 7.91 ng/ml (>5.38)
[2024-12-10 08:14] LABS: Vitamin B12 523.0 pg/ml (180-914)
[2024-12-10] MEDS: LOSARTAN POTASSIUM 50 MG TAB PO SCH (09:25)
[2024-12-10] MEDS: VENLAFAXINE HCL XR 37.5 MG CAPXR PO SCH (09:25)
--- NOTE | 2024-12-10 09:44 | Communication Note ---
Date of Service: December 10, 2024 LFT's stable if not a little lower. Nothing further to add. I think his GI symptoms are functional and he says he can't have procedures. Will sign off. Rolf singh reconsult if further assistance needed
--- NOTE | 2024-12-10 12:54 | Communication Note ---
Date of Service: December 10, 2024 Patient with reported reaction to Effexor. he reports legs tingling and severe anxiety. requested it to be discontinued. would consider paxil in 1-2 days. however patient doesn't feel ready at this time.
[2024-12-10] MEDS: clonazePAM 0.5 MG TAB PO SCH (17:32)
[2024-12-11] MEDS: ACETAMINOPHEN 325 MG TAB PO PRN (02:17)
[2024-12-11] MEDS: PROPRANOLOL HCL 10 MG TAB PO SCH (05:48)
[2024-12-11 06:52] LABS: Alanine Aminotransferase 347.0 U/L (7-52); Albumin Globulin Ratio 1.6 (0.9-2); Alkaline Phosphatase 76.0 U/L (34-104); Anion Gap 7.0 (3-11); Bilirubin,Total 1.4 mg/dl (0.2-1.0); Blood Urea Nitrogen 27.0 mg/dl (6-23); Calcium 9.3 mg/dl (8.6-10.3); Carbon Dioxide 28.0 mmol/L (21-32); Chloride 99.0 mmol/L (98-107); Creatinine Clr Calc Pharmacy 97.2 ml/min; Globulin 2.6 gm/dl (2.5-4.0); Glucose 93.0 mg/dl (70-99(Fasting)); Potassium 4.2 mmol/L (3.5-5.1); Sodium 134.0 mmol/L (136-145); Total Protein 6.7 gm/dl (6.0-8.3)
[2024-12-11] MEDS: METOPROLOL SUCC 25MG EXT REL TAB PO SCH (11:09)
--- NOTE | 2024-12-11 11:10 | Electrocardiogram Report ---
Test Reason : Blood Pressure : */* mmHG Vent. Rate : 57 BPM Atrial Rate : 57 BPM P-R Int : 170 ms QRS Dur : 104 ms QT Int : 424 ms P-R-T Axes : 24 -7 25 degrees QTcB Int : 412 ms Sinus bradycardia Otherwise normal ECG When compared with ECG of 09-May-2022 06:20, T wave inversion no longer evident in Inferior leads Confirmed by Tanner Antoine ([id number]) on 12/11/2024 10:53:48 AM Referred By: REFERRED SELF Confirmed By: Tanner Antoine
--- NOTE | 2024-12-11 15:11 | Hospitalist Progress Note ---
Date of Service December 11, 2024 Assessment & Plan (1) Transaminitis: Plan: In summary, 64 year old M with a past medical history of LUNA, Insomnia, RAMIREZ with CPAP, dyslipidemia, CAD s/p stent, HTN, Vitamin D deficiency admitted for intractable headache and concerns for ability to eat. Patient's diet is now self restricted to sweet potatoes, chicken breast, and plain yogurt. He states that he follows a operation shift supervisor who shares that he has a leaky gut,stating his gut membrane allows "undigested food particles into [his] blood stream." When discussing the possibility of DILI from supplements, he reports he cannot stop his current supplements as they are the only thing that help with his bloating. While exploring the bloating, he reports that doctors give him severe anxiety and it limits his ability to pursue further examination, noting that a colonoscopy or egd would not be in the realm of possibility at this time. Neurology evaluated patient reporting that there is concern for possible vitamin A toxicity or other nutritional component contributing to headaches and that medications may not help this. Package Delivery Room Service Runner is concerned given patient's predominate diet of sweet potatoes he is exhibiting vitamin A toxicity marked by headaches, liver damage, abdominal discomfort. When discussed with patient, he states he is unsure he can make a dietary change as everything else out side of his current diet, even a small bite of salad, gives him a severe headache. A vitamin A level was attempted to be drawn however, patient was not fasting by time of draw as he takes his medications with yogurt. Level is pending As far as liver enzymes, they remained unchanged. It is unclear how long they have been at this level. Dietary changes were recommended. Discontinuation of supplements were encouraged. Patient declined. Vitamin A level and other vitamin levels to be sent, but will likely not return prior to dispo. This can been followed as an outpatient. Patient declines GI workup At this time, patient's current symptoms are predominately driven by anxiety. Psych liason is working for dispo to an inpatient psych unit. Analy declined. Patient medically clear for dispo as soon as inpatient unit available. #Anxiety Highly anxious with everyday activities;follows OP Psych in [place] and prescribed Clonazepam QID Continue home clonazepam for now (UDS negative for benzos as metabolized differently than other benzos) Psych consult for additional recs and possible outpatient services -Plan for possible discharge to inpatient unit to help with severe anxiety -will appreciate pending recs -Reviewed recs: started Effexor 37.5 mg daily. He could not tolerate Initially trialed 1mg klonipin bid, however, worsened anxiety given too many changes, therefore resumed 0.5mg qid dosing, discussed with psych liaison Will stop propranolol and restart metoprolol at a lower dose. #Transaminitis unknown etiology, suspect ?DILI iso supplement use On admission, AST 90; ALT 402, chronically elevated bili CT abdomen/pelvis showing No acute infectious or inflammatory findings are identified in the abdomen or pelvis; Moderate constipation; Advanced coronary artery atherosclerosis. Liver US with gallbladder polyps and sludge Salicylates negative, tylenol negative, UDS negative HBV/ HCV negative A1C 5.3%; iron studies wnl Given presence of gallbladder polyps (low suspicion contributing to particular lft pattern), GI consulted. he declines w/u or to change diet -Reviewed GI recommendations: plan for annual US to monitor polyps LFTs will need to be monitored as op Encouraged patient to consider discontinuing supplements, this will need to be a continued topic to be addressed as an op and will require close lft monitoring as an op. He declines #Migraines CT head without acute findings Neurology recommended CTA head/neck, MRI brain, all without acute abnormalities #Hypertension: Continue home BP meds and trend reduced losartan to 50mg with SBP hold <115 #Asymptomatic bradycardia iso BB use, rates in mid50s Continue to monitor Sleep apnea may be contributing as well #Dyslipidemia: CT Abd/Pelvis showing advanced coronary artery atherosclerosis; not currently on statin therapy d/t intolerance with myalgias LDL 58 #RAMIREZ Cont home CPAP DVT Ppx: Teds Code status: Full PCP: Dr. Adria Ch Dispo: pending dispo to psychiatric inpatient unit. He has been declined by the [facility] I spent a total of 55 minutes coordinating, documenting, and providing care for this patient excluding time spent in the performance of separately billed services. . (2) Hypertension: Admission and Anticipated Discharge Date Admission Date: December 10, 2024 Subjective Chart, vital signs and data reviewed. Patient states the propranolol is giving him a severe headache. He says his anxiety is worse because he is off the metoprolol. Said he has been on metoprolol for quite some time. It was held and changed due to bradycardia. He is adamant he needs to be on metoprolol because of his CAD and prior stent. I spoke at length with the patient and answered all his questions. I discussed the case with psychiatry. Patient is interested in inpatient therapy and psychiatry is working towards that end. He denies chest pain or shortness of breath. Patient has known sleep apnea which also could be contributing to some of his bradycardia. Patient states that he has normally a low pulse rate because he walks several miles daily since his claudication. Physical Exam Physical Exam: General- adult male seen at bedside Head- atraumatic Eyes- PERRL, EOMI, anicteric ENT- oropharynx clear Neck- supple, no JVD, no adenopathy, no thyromegaly; carotids +2/2, no bruits appreciated Lungs- clear to auscultation and percussion Heart- regular rhythm rate is 60; no murmur, no gallop, no rub appreciated Extremities- no pretibial edema, no calf tenderness; peripheral pulses intact Neuro- alert, oriented x 3; PERRL, EOMI; no focal findings Skin- warm & dry Results & Data Results & Data Vital Signs (Past 12 Hours) Vital Signs Temp Pulse Resp BP Pulse Ox O2 Del Method 12/11/24 11:05 60 14 152/67 H 97 Room Air 12/11/24 07:35 Room Air, CPAP 12/11/24 07:04 36.3 C L 57 L 16 134/80 99 Room Air 12/11/24 05:47 36.4 C L 64 16 139/76 98 Room Air
[2024-12-11 15:17] VITALS: RESP 16
--- NOTE | 2024-12-11 15:45 | Psychiatric Progress Note ---
Date of Service December 11, 2024 Impression / Recommendations Impression 1. Major depressive disorder. 2. Generalized anxiety disorder. 3. Somatic Symptom disorder is a reasonable differential given intense psychic distress, preoccupation with somatic symptoms and functional impairment. His acute risk of self-harm is elevated given worsened depression SI and severe anxiety with panic attacks. Pt remains safe in the hospital setting at this point. Discussed further medication options for anxiety and depression including Paroxetine, Fluvoxamine and Clomipramine. Note that pt has thus far had no trial of tricyclic antidepressants. Pt remains concerned about side effects but will review these options. Again reviewed the option of inpatient psychiatric hospitalization. Reviewed benefits, including the ability to trial other medications within the context of a medically monitored, structured environment. However, pt is ambivalent due to concerns about being able to maintain his current strict diet, access to his cell phone, access to tv during the night in the event that he is unable to sleep at night, and uncertainty about potential benefit. Overall, I spent a total of 60 minutes with this case including review of chart records, review of lab work, direct evaluation of the patient at bedside, counseling the patient, discussion of the patient with the hospitalist provider, discussion with the psychiatric liason during clinical rounds and documentation in the electronic health record. (1) Suicidal ideations: (2) Major depression: (3) LUNA (generalized anxiety disorder): (4) Somatic complaints, multiple: Plan -Agree with Klonopin 1mg BID -Consider inpatient psychiatric treatment at a facility which can accommodate his CPAP use once medically stable - Psychiatry will follow. Interval History Identifying Information Background: 69 year old male, referred by outpatient psychiatrist for worsening anxiety and sleep issues refractory to multiple medication trials. Patient was seen & assessed and interval progress reviewed with psychiatry liaison. Chief Complaint "Nothing is helpful". Chief Complaint: Anxiety and sleep disturbance. Subjective Subjective Pt was seen for follow up. Prior consult note by Dr. Walker was reviewed 12/09/24. Impression and Plan: Diagnostically consistent with major depressive disorder and generalized anxiety with prominent somatic symptoms and headaches of unclear cause. Unclear if his blood pressure and stomach issues may also be driven by anxiety vs alternative cause so medical workup ongoing. His acute risk of self-harm is elevated given worsened depression SI and severe anxiety with panic attacks and while he remains safe in the hospital setting at this point inpatient psychiatric hospitalization is reasonable, and he is interested in this, due to his increasing symptom burden, elevated PHQ-9 scores, and difficulty functioning and eating due to his symptoms in spite of outpatient psychiatric care. Overall, I spent a total of 80 minutes with this case including review of chart records, review of labwork, review of EKG QTc, direct evaluation of the patient at bedside, counseling the patient, discussion of the patient with the hospitalist provider, discussion with the psychiatric liason during clinical rounds and documentation in the electronic health record. (1) Suicidal ideations: (2) Major depression: (3) LUNA (generalized anxiety disorder): (4) Somatic complaints, multiple: Plan -Adjust Klonopin to 1mg BID (no reason for QID dosing with long half life so will consolidate prior to admission QID dosing of 0.5mg) -Start venlafaxine ER 37.5mg daily for depression, anxiety and headache reduction benefits -consider re-trial of mirtazapine 3.75mg HS for insomnia if he becomes agreeable to this -Consider inpatient psychiatric treatment at a facility which can accommodate his CPAP use once medically stable History of Present Illness: Since his evaluation by Dr Walker, pt has had a trial of low dose venlafaxine which he reports as being unsuccessful due to side effects overnight. He continues to report severe anxiety, depressive symptoms and an intense preoccupation with somatic symptoms. This includes reporting persistent mucus collection in his throat as well as headaches, triggered by various foods (other than chicken, sweet potato and yoghurt). He remains ambivalent both additional medication trials and admission for inpatient psychiatric treatment. Numerous medications have been trialed: Buspirone - brief improvement followed by worsened anxiety and elevated BP Quetiapine - increased BP and severe morning headaches. Sertraline 50mg - initiated at 25mg, dose increased after 2 days with BP 180s/90s and patient feeling "comatose" Trazodone - mild sleep benefit for 2-3 hrs but daytime hangover; not effective after 6 months. Gabapentin - worsened depression and suicidal thoughts without sleep benefit at 6 weeks Lunesta - severe depression and anxiety. Escitalopram - increased anxiety and headaches Duloxetine - severe headache and anxiety Lorazepam 0.5mg q6h - initial benefit but now finds it sedating without anxiolysis due to developed tolerance Alprazolam - short-lived sleep aid but strong rebound anxiety Zolpidem - no sleep improvement and rebound anxiety Zaleplon - no sleep benefit and worsened daytime anxiety Mirtazapine 7.5mg - mild sleep benefit but headaches even at low dose Doxepin - severe headache and malaise Venlafaxine - "disaster" when attempted yesterday with worsened anxiety. Current medications include clonazepam 0.5mg qid and propanolol 10 mg tid. . Benefits: Overall, medication trials have provided minimal relief. Lorazepam and trazodone gave short-lived improvement in anxiety and sleep, respectively. No other substantial benefit from psychopharmacology to date. Physical Exam Psychiatric Orientation: alert, oriented x 3 and cooperative Apperance: appropriately dressed Eye Contact: good eye contact Motor Behavior: no abnormal motor movements Speech: normal rate/rhythm/volume of speech Affect: + anxious affect Mood: + depressed mood, + anxious mood and + irritable mood Thought Process: + circumstantial thought process Thought Content: + preoccupation (with somatic symptoms. ) Suicidal Thoughts: denies suicidal plan; + reports suicidal thoughts Homicidal Thoughts: denies homicidal thoughts Hallucinations: no auditory hallucinations and no visual hallucinations Insight: + limited insight Judgment: + limited judgement Vital Signs (Past 24 Hours) Last Vital Signs Temp 36.4 C L 12/11/24 15:11 Pulse 64 12/11/24 15:11 Resp 16 12/11/24 15:11 BP 132/77 12/11/24 15:11 Pulse Ox 99 12/11/24 15:11 O2 Del Method Room Air 12/11/24 15:11 Results & Data ([facility]) Laboratory Results Laboratory Results - last 24 hr 12/11/24 05:42 Sodium 134 L Potassium 4.2 Chloride 99 Carbon Dioxide 28 Anion Gap 7 BUN 27 H Creatinine 0.73 Est Cr Clr Drug Dosing 97.2 eGFR 101.60 BUN/Creatinine Ratio 37.0 H Glucose 93 Calcium 9.3 Total Bilirubin 1.4 H AST 107 H ALT 347 H Alkaline Phosphatase 76 Total Protein 6.7 Albumin 4.1 Globulin 2.6 Albumin/Globulin Ratio 1.6 Vitamin A Pending Current Inpatient Medications Current Inpatient Medications: Current Inpatient Medications Acetaminophen (Acetaminophen 325 Mg Tab) 650 mg PO Q4H PRN PRN Reason: pain/fever Stop: 01/07/25 18:44 Last Admin: 12/11/24 10:25 Dose: 650 mg Al Hydrox/Mg Hydrox/Simethicone (Aluminum/Magnesium Susp 30 Ml Udc) 30 ml PO Q6H PRN PRN Reason: Dyspepsia Stop: 01/07/25 18:44 Clonazepam (Clonazepam 0.5 Mg Tab) 0.5 mg PO QID@0500,1100,1700,2300 [facility] Stop: 01/09/25 16:59 Last Admin: 12/11/24 10:58 Dose: 0.5 mg Losartan Potassium (Losartan Potassium 50 Mg Tab) 50 mg PO QAM [facility] Stop: 01/09/25 08:59 Last Admin: 12/11/24 09:14 Dose: 50 mg Magnesium Hydroxide (Magnesium Hydroxide Susp 30 Ml Udc) 30 ml PO Q6H PRN PRN Reason: Constipation Stop: 01/07/25 18:44 Metoprolol Succinate (Metoprolol Succ 25mg Ext Rel Tab) 25 mg PO [facility] Stop: 01/10/25 11:59 Last Admin: 12/11/24 11:09 Dose: 25 mg Ondansetron HCl (Ondansetron Inj 2 Mg/Ml 2 Ml Vial) 4 mg IV Q6H PRN PRN Reason: Nausea Stop: 01/07/25 18:44 Polyethylene Glycol (Polyethylene (Miralax) 17 Gm Pack) 17 gm PO DAILY PRN PRN Reason: Constipation Stop: 01/07/25 18:44 Sodium Biphosphate/Sodium Phosphate (Sod Phosphate/Sod Biphosphate Enema 132 Ml Btl) 132 ml [place] DAILY PRN PRN Reason: Constipation (3rd line) Stop: 01/07/25 21:59 (2) Major depression Major depression recurrence: recurrent Active/Remission status: currently active Major depression episode severity: moderate Qualified Code(s): F33.1 - Major depressive disorder, recurrent, moderate
[2024-12-11 19:42] VITALS: O2SAT 98
[2024-12-12 07:22] VITALS: PULSE 60; TEMP 98.1
--- NOTE | 2024-12-12 10:44 | Discharge Summary ---
Discharge Summary Date of Service December 12, 2024 Principal Dx & Hospital Course #1 = Principal Diagnosis (1) Transaminitis: In summary, 64 year old M with a past medical history of LUNA, Insomnia, RAMIREZ with CPAP, dyslipidemia, CAD s/p stent, HTN, Vitamin D deficiency admitted for intractable headache and concerns for ability to eat. Patient's diet is now self restricted to sweet potatoes, chicken breast, and plain yogurt. He states that he follows a maintenance shop welder who shares that he has a leaky gut,stating his gut membrane allows "undigested food particles into [his] blood stream." When discussing the possibility of DILI from supplements, he reports he cannot stop his current supplements as they are the only thing that help with his bloating. While exploring the bloating, he reports that doctors give him severe anxiety and it limits his ability to pursue further examination, noting that a colonoscopy or egd would not be in the realm of possibility at this time. Neurology evaluated patient reporting that there is concern for possible vitamin A toxicity or other nutritional component contributing to headaches and that medications may not help this. Auto Refinisher is concerned given patient's predominate diet of sweet potatoes he is exhibiting vitamin A toxicity marked by headaches, liver damage, abdominal discomfort. When discussed with patient, he states he is unsure he can make a dietary change as everything else out side of his current diet, even a small bite of salad, gives him a severe headache. A vitamin A level was attempted to be drawn however, patient was not fasting by time of draw as he takes his medications with yogurt. Level is pending As far as liver enzymes, they remained unchanged. It is unclear how long they have been at this level. Dietary changes were recommended. Discontinuation of supplements were encouraged. Patient declined. Vitamin A level and other vitamin levels to be sent, but will likely not return prior to dispo. This can been followed as an outpatient. Patient declines GI workup At this time, patient's current symptoms are predominately driven by anxiety. Psych liason is working for dispo to an inpatient psych unit. Analy declined. Patient medically clear for dispo as soon as inpatient unit available. #Anxiety Highly anxious with everyday activities;follows OP Psych in [place] and prescribed Clonazepam QID Continue home clonazepam for now (UDS negative for benzos as metabolized differently than other benzos) Psych consult for additional recs and possible outpatient services -Plan for possible discharge to inpatient unit to help with severe anxiety -will appreciate pending recs -Reviewed recs: started Effexor 37.5 mg daily. He could not tolerate Initially trialed 1mg klonipin bid, however, worsened anxiety given too many changes, therefore resumed 0.5mg qid dosing, discussed with psych liaison Will stop propranolol and restart metoprolol at a lower dose. #Transaminitis unknown etiology, suspect ?DILI iso supplement use On admission, AST 90; ALT 402, chronically elevated bili CT abdomen/pelvis showing No acute infectious or inflammatory findings are identified in the abdomen or pelvis; Moderate constipation; Advanced coronary artery atherosclerosis. Liver US with gallbladder polyps and sludge Salicylates negative, tylenol negative, UDS negative HBV/ HCV negative A1C 5.3%; iron studies wnl Given presence of gallbladder polyps (low suspicion contributing to particular lft pattern), GI consulted. he declines w/u or to change diet -Reviewed GI recommendations: plan for annual US to monitor polyps LFTs will need to be monitored as op Encouraged patient to consider discontinuing supplements, this will need to be a continued topic to be addressed as an op and will require close lft monitoring as an op. He declines #Migraines CT head without acute findings Neurology recommended CTA head/neck, MRI brain, all without acute abnormalities #Hypertension: Continue home BP meds and trend reduced losartan to 50mg with SBP hold <115 #Asymptomatic bradycardia iso BB use, rates in mid50s Continue to monitor Sleep apnea may be contributing as well #Dyslipidemia: CT Abd/Pelvis showing advanced coronary artery atherosclerosis; not currently on statin therapy d/t intolerance with myalgias LDL 58 #RAMIREZ Cont home CPAP DVT Ppx: Teds Code status: Full PCP: Dr. Adria Ch Dispo: pending dispo to psychiatric inpatient unit. He has been declined by the [facility] course: Patient was admitted to the medical floor. Psychiatry was consulted. Initially patient was interested in inpatient mental health therapy. GI was consulted for elevated LFTs. They felt that this could be dietary. The patient was on multiple vitamins and supplements but the patient refused to change his diet or declined further workup. RUQ US Showed gallbladder polyps. Recommendation was to repeat the ultrasound in 1 year. Neurology was consulted for the headaches. Thought this could be dietary and possibly vitamin A toxicity. Vitamin A level was pending at time of discharge. Patient had asymptomatic bradycardia. After much coaxing the patient agreed to have the metoprolol weaned and he was started on propranolol. he stated the headaches were much worse and the anxiety much worse off the metoprolol. The patient does have known CAD with stent. Metoprolol was reintroduced at 25 mg. He had some soft blood pressures and the lisinopril was decreased to 20mg. patient has headache that resolved no further bradycardia on the metoprolol otherwise daily. Patient was given multiple choices for outpatient psychiatric care as he did not want to go back to his original psychiatrist in [place]. He was instructed to follow-up with GI, cardiology and neurology along with his PCP. Patient expressed understanding. Patient had no suicidal ideations and his vital signs were stable and the physical exam findings were stable. Patient is quite noncompliant and suspect his readmission risk is high. (2) Hypertension: Notes For Next Care Provider Medication Changes From Visit Metoprolol dose decreased to 25 mg daily due to asymptomatic bradycardia Lisinopril dose decreased to 50 mg daily Admission HPI Per Admitting Provider Patient is a 64 year old M with a past medical history of LUNA, Insomnia, RAMIREZ with CPAP, dyslipidemia, CAD, HTN, Vitamin D deficiency presenting with headache. Patient reports having chronic headaches for ~2 years that he describes as "allergic type headaches" that are instigated by many different foods and medications; these triggers also cause insomnia. Headache worsened yesterday morning with his typical diet regimen and he came here for evaluation. Reportedly, he is highly anxious with everyday tasks, especially being here in the hospital; although, he feels comforted when talking to people. He states he is "supersensitive to medications", blood pressure meds have caused his sleep apnea, OTC supplements are taken to manage his "leaky gut" that was diagnosed by his family member. Denies fever, chills, weight loss, weakness,cognitive changes, SI/HI, hallucinations, vision/hearing changes, chest pain, SOB, swelling, difficulty breathing, urinary concerns, N/V/D, joint swelling/pain, ambulation difficulty, skin rashes, lesions, bleeding, bruising. In the emergency department, patient was hemodynamically stable with no evidence of infection or acute mental status concerns. Labs showing mild transaminitis with AST 90 and ALT 402 and a normal Alk Phos. Bili 1.2 and at baseline per outside record review. Urine negative for UTI. UDS negative. Clinically dry- low sodium and elevated BUN/Creat ratio. 1L NSS bolus given in the ED. Head CT with no acute intracranial findings. CT abdomen/pelvis showed No acute infectious or inflammatory findings are identified in the abdomen or pelvis; Moderate constipation; Advanced coronary artery atherosclerosis. Patient reports following Psych in [place] for anxiety management and prescribed clonazepam 4 times a day. Hyper focused on diet and supplements to manage a "leaky gut" that was self-diagnosed. History obtained primarily from the patient and via hospitalization record. Discharge Exam General- adult male NAD Head- atraumatic Eyes- PERRL, EOMI, anicteric ENT- oropharynx clear Neck- supple, no JVD, no adenopathy, no thyromegaly; carotids +2/2, no bruits appreciated Lungs- clear to auscultation and percussion Heart- regular rhythm; no murmur, no gallop, no rub appreciated Abdomen- normal bowel sounds, soft, nontender, no masses or hepatosplenomegaly Extremities- no pretibial edema, no calf tenderness; peripheral pulses intact Neuro- alert, oriented x 3; PERRL, EOMI; no facial palsy; no dysarthria; motor 5/5 bilaterally; Skin- warm & dry Updated Medication List Medication Instructions Recorded Confirmed Type clonazepam 0.5 mg tablet 0.5 mg PO QID 12/08/24 12/08/24 History losartan 100 mg tablet 50 mg (1/2 x 100 mg) PO QAM #0 tabs 12/12/24 12/08/24 Rx metoprolol succinate 50 mg 25 mg (1/2 x 50 mg) PO QAM #0 tabs 12/12/24 12/08/24 Rx tablet,extended release 24 hr Additional Medication Comments Metoprolol decreased to 25% mg due to asymptomatic bradycardia Lisinopril decreased to 50 mg daily Hospital Stay Data Consultations 12/08/24 15:22 ED Decision to Admit Stat 12/08/24 18:31 Consult Neurology Stat 12/08/24 18:45 Consult Psychiatry Routine 12/09/24 08:08 Consult Gastroenterology Routine Diagnostic Imagining Performed 12/08/24 12:21 CT head/brain wo con Stat 12/08/24 14:29 CT abd pelvis IV con only Stat 12/08/24 16:56 US liver Routine 12/09/24 13:22 CTA head w con [CT angio head w con] Routine CTA neck with con [CT angio neck with con] Routine MRI Brain [MR brain wo con] Routine Pending Results Patient Have Any Pending Studies at Discharge: No Discharge Instructions Given to Patient (Per Discharging Provider) F/U with Cardiology for CAD, GI for elevated liver tests and Neurology for headaches Total Time Total Time Spent Total Time Spent (In Minutes): 37 minutes
[2024-12-12 11:57] VITALS: BP 98/64
--- NOTE | 2024-12-14 07:01 | Coding Query ---
CODING QUERY To promote full compliance with coding requirements relating to patient care, provider participation is requested in all cases of clinical lab scientist uncertainty. Please assist us with the question(s) below: Coding Question(s): There is documentation through the record and on the Discharge Summary of, "Transaminitis unknown etiology, suspect ?DILI iso supplement use". DILI cannot be found in our list of acceptable abbreviatins. Please specify below the meaning of "DILI": ( ) Please specify the meaning of DILI, if known:___Drug-induced liver injury _ ( ) DILI has unknown meaning Physician's Response(s): Thank you Leigha Brennan Principal Diagnosis: "that condition established after study, to be chiefly responsible for occasioning the admission of the patient to the hospital for care." Co-Existing Principal Diagnosis: "when two or more diagnoses equally meet the criteria for principal diagnosis as determined by the circumstances of admission, diagnostic work up, and/or therapy provided, and the Alphabetic Index, Tabular List, or another coding guideline does not provide sequencing direction, any one of the diagnoses may be sequenced first." "When the physician has documented what appears to be a current diagnosis in the body of the record, but has not included the diagnosis in the final diagnostic statement, the physician should be asked whether the diagnosis should be added." (Source [facility]oding [facility] 2 QTR90. p3-4) [facility]
[2024-12-14 07:47] LABS: Copper, Serum 85 mcg/dL (70-175)
== END 2024-12-12 13:32 | disposition home or self-care (01) | DRG 442 ==
LOC: ED 11:53 → 3N 11:53 → SUATTDRO 16:56 → 3N 18:32 → SUATTDRO 12-10 07:12